=== PATIENT | female | born 1955 | race Caucasian/White ===

== ENCOUNTER 2020-03-26 09:32 | Outpatient (REF) | payer OTHER, SELFPAY ==
[2020-03-26 11:32] LABS: Estimated Average Glucose 114 mg/dL; Hemoglobin A1c % 5.6 %
[2020-03-26 11:44] LABS: Alanine Aminotransferase 43 U/L (0-31); Anion Gap 14 (12-20); Aspartate Amino Transferase 28 U/L (5-31); Blood Urea Nitrogen 14 mg/dL (9-16); Calcium 9.6 mg/dL (8.4-10.2); Carbon Dioxide 30 mmol/L (22-29); Chloride 103 mmol/L (96-108); Cholesterol 258 mg/dL; Estimated Glomerular Filt Rate > 60; Glucose Fasting 107 mg/dL (60-99); HDL Cholesterol 79 mg/dL; LDL Cholesterol Calculated 165 mg/dl; Potassium 4.3 mmol/l (3.3-5.1); Sodium 143 mmol/L (135-145); Triglycerides 72 mg/dL
[2020-03-26 12:07] LABS: Vitamin D 25-OH Total 23.3 ng/mL (>30)
== END 2020-03-26 09:33 | disposition home or self-care (01) ==
LOC: HO.HMGCLDS 09:32
PROVIDERS: PCP Internal Medicine; Visit Provider Internal Medicine
DX: I10 Essential (primary) hypertension (principal); E78.5 Hyperlipidemia, unspecified; E55.9 Vitamin D deficiency, unspecified; J30.89 Other allergic rhinitis; R73.01 Impaired fasting glucose; F41.1 Generalized anxiety disorder; Z78.0 Asymptomatic menopausal state
CPT/HCPCS: 36415; 80048; 80061; 82306; 83036; 84450; 84460

== ENCOUNTER 2020-07-15 11:10 | Outpatient (REF) | payer OTHER, SELFPAY ==
[2020-07-15 14:26] LABS: Alanine Aminotransferase 47 U/L (0-31); Aspartate Amino Transferase 29 U/L (5-31); Cholesterol 326 mg/dL; HDL Cholesterol 83 mg/dL; LDL Cholesterol Calculated 227 mg/dl; Triglycerides 81 mg/dL
[2020-07-15 14:46] LABS: Vitamin D 25-OH Total 68.9 ng/mL (>30)
== END 2020-07-15 11:11 | disposition home or self-care (01) ==
LOC: HO.HMGCLDS 11:10
PROVIDERS: PCP Internal Medicine; Visit Provider Internal Medicine
DX: E55.9 Vitamin D deficiency, unspecified (principal); E78.5 Hyperlipidemia, unspecified; Z78.0 Asymptomatic menopausal state
CPT/HCPCS: 36415; 80061; 82306; 84450; 84460

== ENCOUNTER 2021-01-18 08:23 | Outpatient (REF) | payer OTHER, SELFPAY ==
[2021-01-18 11:58] LABS: Alanine Aminotransferase 42 U/L (0-31); Anion Gap 13 (12-20); Aspartate Amino Transferase 36 U/L (5-31); Blood Urea Nitrogen 12 mg/dL (9-16); Calcium 9.6 mg/dL (8.4-10.2); Carbon Dioxide 28 mmol/L (22-29); Chloride 104 mmol/L (96-108); Cholesterol 321 mg/dL; Estimated Glomerular Filt Rate > 60; Glucose Fasting 109 mg/dL (60-99); HDL Cholesterol 86 mg/dL; LDL Cholesterol Calculated 219 mg/dl; Potassium 4.5 mmol/L (3.3-5.1); Sodium 140 mmol/L (135-145); Triglycerides 84 mg/dL
== END 2021-01-18 08:24 | disposition home or self-care (01) ==
LOC: HO.HMGCLDS 08:23
PROVIDERS: PCP Internal Medicine; Visit Provider Internal Medicine
DX: R74.8 Abnormal levels of other serum enzymes (principal); E78.5 Hyperlipidemia, unspecified; I10 Essential (primary) hypertension; R73.01 Impaired fasting glucose
CPT/HCPCS: 36415; 80048; 80061; 82550; 84450; 84460

== ENCOUNTER 2021-05-13 07:14 | Outpatient (REF) | payer OTHER, SELFPAY ==
[2021-05-13 11:41] LABS: Alanine Aminotransferase 38 U/L (0-31); Anion Gap 11 (12-20); Aspartate Amino Transferase 30 U/L (5-31); Blood Urea Nitrogen 15 mg/dL (9-16); Calcium 9.6 mg/dL (8.4-10.2); Carbon Dioxide 26 mmol/L (22-29); Chloride 106 mmol/L (96-108); Cholesterol 309 mg/dL; Estimated Glomerular Filt Rate > 60; Glucose Fasting 109 mg/dL (60-99); HDL Cholesterol 84 mg/dL; LDL Cholesterol Calculated 199 mg/dl; Potassium 4.4 mmol/L (3.3-5.1); Sodium 139 mmol/L (135-145); Triglycerides 133 mg/dL
== END 2021-05-13 07:15 | disposition home or self-care (01) ==
LOC: HO.HMGCLDS 07:14
PROVIDERS: Visit Provider Internal Medicine
DX: E78.5 Hyperlipidemia, unspecified (principal); I10 Essential (primary) hypertension
CPT/HCPCS: 36415; 80048; 80061; 82550; 84450; 84460

== ENCOUNTER → 2021-05-25 11:30 | Outpatient (BNVA) | payer OTHER, SELFPAY | PROVIDERS: PCP Internal Medicine; Visit Provider Physician Assistant | DX: D12.6 Benign neoplasm of colon, unspecified (principal); K59.09 Other constipation; Z12.11 Encounter for screening for malignant neoplasm of colon; Z79.899 Other long term (current) drug therapy | CPT/HCPCS: 99202; 99212 ==

== ENCOUNTER 2021-05-25 12:24 | Outpatient (REF) | payer OTHER, SELFPAY ==
[2021-05-25 13:33] LABS: MANUAL DIFF FLAG NO
[2021-05-25 13:37] LABS: Basophils Absolute Auto 0.1 X10*3/uL (0.0-0.2); Basophils Percent Auto 0.7 % (0-2); Eosinophils Absolute Auto 0.5 X10*3/uL (0.0-0.4); Eosinophils Percent Auto 6.2 % (0-4); Hemoglobin 12.6 g/dl (12.0-16.0); Imm Gran Abs Auto 0.02 X10*3/uL (0.00-0.03); Imm Gran Pct Auto 0.3 % (0.0-0.4); Lymphocytes Absolute Auto 2.1 X10*3/uL (1.2-4.9); Lymphocytes Percent Auto 27.6 % (20-40); Mean Corpuscular HGB Conc 33.2 g/dl (31.0-35.0); Mean Corpuscular Hemoglobin 32.1 pg (27.0-33.0); Mean Corpuscular Volume 96.9 fL (80.0-98.0); Mean Platelet Volume 10.5 fL (9.4-12.3); Monocytes Absolute Auto 0.4 X10*3/uL (0.1-1.2); Monocytes Percent Auto 4.9 % (2-11); Neutrophils Absolute Auto 4.5 x10*3/uL (2.0-8.3); Neutrophils Percent Auto 60.3 % (45-73); Platelet Count 350 X10*3/uL (160-400); Red Blood Count 3.92 X10*6/uL (4.20-5.50); Red Cell Distribution Width 11.9 % (11.0-16.0); White Blood Count 7.5 X10*3/uL (4.8-10.8)
[2021-05-25 14:09] LABS: Thyroid Stimulating Hormone 1.53 uIU/mL (0.32-4.0)
== END 2021-05-25 12:25 | disposition home or self-care (01) ==
LOC: HO.WFDLDS 12:24
PROVIDERS: Visit Provider Physician Assistant
DX: K59.09 Other constipation (principal); D12.6 Benign neoplasm of colon, unspecified
CPT/HCPCS: 36415; 82378; 84443; 85025

== ENCOUNTER 2021-06-01 12:29 | Day surgery (SDC) | payer OTHER, SELFPAY ==
--- NOTE | 2021-05-31 12:25 | HO.ANESPROP2 ---
Documented by User: Carolina Goff NP 05/31/21 12:27 HPI - Anesthesia Eval Consult details Narrative: 65yo F for Colonoscopy PMFSH Active Problems Active Problems: All Active Problems (Updated 05/25/21 @ 14:44 by Deann Brothers PA-C) Tubular adenoma of colon (Acute) History of vitamin D deficiency (Acute) Essential hypertension (Acute) Tubular adenoma of colon (Acute) Patent foramen ovale with right to left shunt (Acute) Anxiety (Acute) Impaired fasting glucose (Acute) Elevated liver enzymes (Acute) Dyslipidemia (Acute) Other allergic rhinitis (Acute) Past Medical History Medical History Anxiety Dyslipidemia Elevated liver enzymes Essential hypertension History of vitamin D deficiency Impaired fasting glucose Patent foramen ovale with right to left shunt Tubular adenoma of colon Tubular adenoma of colon Vitamin D deficiency Family History Family History Father HTN (hypertension) Hyperlipidemia CAD (coronary artery disease) Alzheimer's disease CVD (cardiovascular disease) Mother Hyperlipidemia Son Bronchial asthma Mental health disorder Paternal Grandmother Alzheimer's disease Paternal Aunt Alzheimer's disease Paternal Uncle No problems noted. Brother No problems noted. Brother No problems noted. Brother No problems noted. Sister No problems noted. Son Bronchial asthma Daughter No problems noted. Surgical History Surgical History (Updated 06/01/21 @ 12:49 by Eboni Iqbal RN) Colloid cyst of brain Hx of colonoscopy Social History Social History Household Members Other:: - 3 children Housing: House Alcohol intake: current Alcohol intake frequency: holidays/special occasions only Patient Tobacco Use Status: Never used Tobacco e-Cigarette/Vaping Use: Never Used Current occupational status: employed and retired Meds Allergies Allergy/AdvReac Type Severity Reaction Status Date / Time atorvastatin AdvReac Unknown myalgia Verified 05/25/21 11:31 Home Medications Medication Instructions Recorded Confirmed Last Taken Type flu vac [id number] 36mos up(PF) 0.5 ml IM DIRECTED 03/27/20 05/25/21 Unknown History varicella-zoster glycoE [id number] 0.5 ml IM DIRECTED 03/27/20 05/25/21 Unknown History adj(PF) 50 mcg/0.5 mL IM susp, [place] rosuvastatin 5 mg tablet 5 mg PO DAILY 02/08/21 05/25/21 Unknown History lisinopril 20 mg tablet 20 mg PO DAILY tab 05/14/21 05/25/21 Unknown History Exam Exam Date and Time: May 31, 2021 1225 Pertinent Lab Results Pertinent Lab Results: Laboratory Tests 05/13/21 05/25/21 07:20 12:30 WBC 7.5 Hgb 12.6 Hct 38.0 Plt Count 350 Sodium 139 Potassium 4.4 Chloride 106 Carbon Dioxide 26 BUN 15 Creatinine 0.90 Assessment and Plan Assessment Anesthesia Assessment: Chart Reviewed Documented by User: Malik Knight MD 06/01/21 15:46 PMFSH Past Medical History Medical History Anxiety Dyslipidemia Elevated liver enzymes Essential hypertension History of vitamin D deficiency Impaired fasting glucose Patent foramen ovale with right to left shunt Tubular adenoma of colon Tubular adenoma of colon Vitamin D deficiency Family History Family History Father HTN (hypertension) Hyperlipidemia CAD (coronary artery disease) Alzheimer's disease CVD (cardiovascular disease) Mother Hyperlipidemia Son Bronchial asthma Mental health disorder Paternal Grandmother Alzheimer's disease Paternal Aunt Alzheimer's disease Paternal Uncle No problems noted. Brother No problems noted. Brother No problems noted. Brother No problems noted. Sister No problems noted. Son Bronchial asthma Daughter No problems noted. Family history of problems with anesthesia: No Surgical History Surgical History (Updated 06/01/21 @ 12:49 by Eboni Iqbal, [place]) Colloid cyst of brain Hx of colonoscopy History of Problems with Anesthesia: No Social History Social History Household Members Other:: - 3 children Housing: House Alcohol intake: current Alcohol intake frequency: holidays/special occasions only Patient Tobacco Use Status: Never used Tobacco e-Cigarette/Vaping Use: Never Used Current occupational status: employed and retired Meds Allergies Allergy/AdvReac Type Severity Reaction Status Date / Time atorvastatin AdvReac Unknown myalgia Verified 05/25/21 11:31 Home Medications Medication Instructions Recorded Confirmed Last Taken Type flu vac [id number] 36mos up(PF) 0.5 ml IM DIRECTED 03/27/20 05/25/21 Unknown History varicella-zoster glycoE [id number] 0.5 ml IM DIRECTED 03/27/20 05/25/21 Unknown History adj(PF) 50 mcg/0.5 mL IM susp, kit rosuvastatin 5 mg tablet 5 mg PO DAILY 02/08/21 05/25/21 Unknown History lisinopril 20 mg tablet 20 mg PO DAILY tab 05/14/21 05/25/21 Unknown History Exam Airway Mallampati Class: III TM Dist: >3cm Neck ROM: Full Loose/Missing/Broken Teeth: Yes (Chipped , poor dentation ) Heart: rrr Lungs: bl breath sounds Assessment and Plan Assessment Anesthesia Assessment: Anesthesia Plan Discussed Final Anesthetic Review Family History of Problems with Anesthesia: No History of Problems with Anesthesia: No NPO: Yes ASA Class: II Final Preanesthetic Review: Meds/Allgs Chart Reviewed, Consent Obtained/Reviewed and Anes Risks/Benef Reviewed Patient Risk: Intermediate Procedure Risk: Intermediate Anesthetic Plan Anesthetic Plan: MAC: Disposition: Standard PACU
[2021-06-01 12:30] VITALS: BMI 33.6
[2021-06-01 12:59] VITALS: BP 151/83; PULSE 86; RESP 16; TEMP 36.8; O2SAT 99
[2021-06-01] MEDS: Lactated Ringers 1,000 ML 100 ML IVCONT (13:08)
--- NOTE | 2021-06-01 14:23 | MHC.SHP ---
Pre-Procedural Eval Section A Date of Service: 06/01/21 Section B Chief Complaint: Benign neoplasm of colon, Relevant Family History (Specify if Yes): No Relevant Social History: None Present Medications: see Short Stay Collaborative assessment Medical History: Significant History (Anxiety Dyslipidemia Elevated liver enzymes Essential hypertension History of vitamin D deficiency Impaired fasting glucose Patent foramen ovale with right to left shunt Tubular adenoma of colon Tubular adenoma of colon Vitamin D deficiency) History of Previous Operations: Relevant previous surgery/procedure and date(s) (Colloid cyst of brain Hx of colonoscopy) Allergies: Allergies Allergy/AdvReac Type Severity Reaction Status Date / Time atorvastatin AdvReac Unknown myalgia Verified 05/25/21 11:31 Review of Systems Sugical H&P ROS: Negative: Constitution, Cardiovascular, Respiratory, Neurological, Psychiatric, Hem-Onc, Allergic/Immunologic, Gastrointestinal, Genitourinary, Musculoskeletal, Integumentary, Endocrine and Eyes/Ears/Nose/Throat Exam Surgical H&P Exam: Normal: HEENT, Normal: Heart, Normal: Lungs, Normal: Extremities, Normal: Abdomen, Normal: Skin and Normal: Neurological Plan Diagnosis/Plan: Unchanged I have reviewed the history and physical and performed a pertinent physical examination on my patient. No changes have occurred unless specified.
--- NOTE | 2021-06-01 14:27 | P.BOP_ITS ---
Brief Operative Note Date of Service: 06/01/21 Pre-op diagnosis: colon screening Post-op diagnosis: same Procedure: see op note Surgeon: David Aparicio MD Anesthesia: MAC Was an Mortgage Analyst used for this Procedure?: No Estimated blood loss (mL): 0 Condition: stable Disposition: PACU
--- NOTE | 2021-06-01 14:28 | W.PM.OPN ---
Operative Note Operative Note Date of Service: 06/01/21 Narrative: Operative Information Procedure Description: Colonoscopy COLONOSCOPY Instrument: Olympus variable stiffness adult scope 190L Colonoscopy Monitoring: Vital signs and clinical assessment, continuous EKG monitoring, Pulse oximetry, Carbon Dioxide monitoring and blood pressure monitoring were done throughout the procedure. Colon withdrawal time was 11 minutes. Procedure: The patient was placed in the left lateral decubitis position and pre-procedure medications were administered. After a digital rectal examination of the ano-rectum, the video colonoscope was inserted into the rectum and advanced through the colon to the cecum/TI. The colonoscope was slowly withdrawn in a retrograde panoramic fashion and the colon mucosa was carefully examined including a retroflexed view of the rectum. Findings and interventions are described below. Procedure Difficulty: moderate due to extrinsic compression of sigmoid, and tight colon with redundancy Findings: Terminal Ileum-not inutbated Cecum:normal Ascending Colon: normal Transverse Colon -normal Descending Colon:normal Sigmoid Colon: 10-12 mm sessile polyp removed with cold snare Rectum: Retroflexion with small internal hemorrhoids, grade I Anorectum - normal Colon preparation: [place] Bowel Preparation Scale Right colon; 2 Transverse colon: 3 Left colon; 2 (0 = Unprepared colon segment with mucosa not seen due to solid stool that cannot be cleared. 1 = Portion of mucosa of the colon segment seen, but other areas of the colon segment not well seen due to staining, residual stool and/or opaque liquid. 2 = Minor amount of residual staining, small fragments of stool and/or opaque liquid, but mucosa of colon segment seen well. 3 = Entire mucosa of colon segment seen well with no residual staining, small fragments of stool or opaque liquid) Impression and Post Procedure Diagnosis: polyp internal hemorrhoids Plan: High fiber diet leaflet Avoid straining at stool, epsom salts and sitz bath, anusol supps or cream Repeat Colonoscopy in 5 years or earlier if clinically indicated Ct scan of A/P to see if there is indeed extrinsic compression of colon Above findings were reviewed with the patient and relevant handouts were provided if indicated.
[2021-06-01 15:00] VITALS: BP 101/60; PULSE 65; RESP 16; TEMP 36.5; O2SAT 97
[2021-06-01 15:21] VITALS: BP 130/81; PULSE 72; RESP 20; TEMP 36.3; O2SAT 98
== END 2021-06-01 15:39 | disposition home or self-care (01) ==
PROVIDERS: PCP Internal Medicine; Visit Provider Internal Medicine Gastroenterology
PROC: 0DJD8ZZ Inspection of Lower Intestinal Tract, Via Natural or Artificial Opening Endoscopic (ICD-10-PCS; CPT 45378; principal; 2021-06-01 14:50)
DX: Z12.11 Encounter for screening for malignant neoplasm of colon (principal); Z86.010 Personal history of colon polyps; D12.5 Benign neoplasm of sigmoid colon; K64.0 First degree hemorrhoids; K21.9 Gastro-esophageal reflux disease without esophagitis; R19.7 Diarrhea, unspecified; I10 Essential (primary) hypertension; E78.5 Hyperlipidemia, unspecified; E55.9 Vitamin D deficiency, unspecified; R73.01 Impaired fasting glucose; F41.1 Generalized anxiety disorder; Z79.899 Other long term (current) drug therapy; Z88.8 Allergy status to other drugs, medicaments and biological substances
CPT/HCPCS: 45385; 88305

== ENCOUNTER → 2021-06-15 12:28 | Outpatient (BNVA) | payer OTHER, SELFPAY | PROVIDERS: PCP Internal Medicine; Visit Provider Physician Assistant | DX: Z13.89 Encounter for screening for other disorder (principal) ==

== ENCOUNTER 2021-07-05 09:16 | Outpatient (REF) | payer OTHER, SELFPAY ==
[2021-07-05 12:03] LABS: Blood Urea Nitrogen 11 mg/dL (9-16); Estimated Glomerular Filt Rate > 60
== END 2021-07-05 09:17 | disposition home or self-care (01) ==
LOC: HO.HMGCLDS 09:16
PROVIDERS: Visit Provider Internal Medicine Gastroenterology
DX: R93.3 Abnormal findings on diagnostic imaging of other parts of digestive tract (principal)
CPT/HCPCS: 36415; 82565; 84520

== ENCOUNTER 2021-07-07 08:01 | Outpatient (REF) | payer OTHER, SELFPAY ==
--- NOTE | ~2021-07-07 | CT_ITS ---
EXAMINATION: CT ABDOMEN AND PELVIS WITH CONTRAST CLINICAL INFORMATION: Unspecified intestinal obstruction. COMPARISON: None TECHNIQUE: Multidetector volumetric images were obtained from the superior aspect of the liver through the pubic symphysis following administration 85 mL of Omnipaque 350 intravenous contrast. Sagittal and coronal reformatted images were obtained on the technologist's workstation. Oral contrast: No. This CT examination was performed using dose optimization techniques as appropriate, variously including the following: *Automated exposure control *Adjustment of mA and/or kV according to patient size (this includes techniques or standardized protocols for targeted exams where dose is matched to indication/reason for exam; i.e. extremities or head) *Use of iterative reconstruction technique DLP: 625 mGy-cm FINDINGS: LUNG BASES: The visualized lung bases are unremarkable. LIVER, GALLBLADDER, AND BILIARY TREE: The liver is homogeneous in density, normal size, shape and contour. No focal lesion or intrahepatic ductal dilatation seen. The gallbladder is unremarkable with no evidence of radiopaque gallstones, gallbladder wall thickening, or obvious pericholecystic inflammatory changes. PANCREAS: Unremarkable. SPLEEN: The spleen is unremarkable with a small accessory splenule seen adjacent to it. ADRENAL GLANDS: Unremarkable. KIDNEYS AND URETERS: The kidneys are normal in size, shape, and attenuation. No hydronephrosis, hydroureter, or calculi seen. No perinephric stranding. BLADDER: Unremarkable. GASTROINTESTINAL TRACT: There is scattered stool and oral contrast seen throughout the colon without any distention. A few scattered diverticula seen but no evidence of mural thickening or pericolic fat stranding. The small bowel loops in the left upper pelvis have mild mural thickening. The appendix is not visualized with certainty. The cecum lies almost to the midline. No free air or free fluid seen. ABDOMINAL WALL: No significant hernia is appreciated. LYMPH NODES: Normal. VASCULAR: Unremarkable. PELVIC VISCERA: There is no free fluid or free air. The uterus is retroverted and appears unremarkable. OSSEOUS STRUCTURES: No lytic or sclerotic process seen. There are mild degenerative disc changes with vacuum disc phenomena at the L3-L4 and L5-S1 disc levels. No lytic or sclerotic process seen. CT/CT abdomen pelvis w con IMPRESSION: Mild constipation. No acute process seen. Nonspecific mild mural thickening small bowel segment left upper pelvis of nonspecific etiology. Consider small bowel follow-through after cleansing enema. No free air or free fluid seen. No abnormal pelvic or retroperitoneal lymph nodes. Fleischner guidelines were followed.
[2021-07-07] MEDS: iohexoL 350 MG/ML 100 ML INFUS..BTL IV (10:41)
[2021-07-07] MEDS: Barium Sulfate Oral (Berry) 450 ML ORAL.SUSP 900 ML PO (10:42)
== END 2021-07-07 08:02 | disposition home or self-care (01) ==
LOC: HO.CT 08:01
PROVIDERS: PCP Internal Medicine; Visit Provider Internal Medicine Gastroenterology
DX: K56.609 Unspecified intestinal obstruction, unspecified as to partial versus complete obstruction (principal)
CPT/HCPCS: 74177; Q9967

== ENCOUNTER 2021-09-17 08:39 | Outpatient (REF) | payer OTHER, SELFPAY ==
--- NOTE | ~2021-09-17 | FL_ITS ---
EXAMINATION: FL SMALL BOWEL SERIES CLINICAL INFORMATION: Follow-up bowel wall thickening of the proximal small bowel on CT COMPARISON: Previous CT of the abdomen and pelvis June 2021 TECHNIQUE: Following a supervisor cigarette making department image of the abdomen, contrast was administered orally, and interval abdominal radiographs were performed to assess for contrast progression through the small bowel. Following contrast transit through the small bowel and into the colon, the patient was placed on the fluoroscopy table, and multiple spot images were obtained. FINDINGS: Cna Pct image of the abdomen demonstrates a normal bowel gas pattern. There is normal transit time of contrast material through the small bowel, with contrast present in the colon by 2 hour 30 minutes. Small bowel loops are of normal caliber throughout the abdomen and pelvis. The jejunal and ileal fold patterns are normal, without evidence of abnormal thickening. No fixed regions of luminal narrowing are seen to suggest stricturing. The terminal ileum demonstrates a normal appearance. FLUOROSCOPY TIME: 0.2 minutes DOSE AREA PRODUCT: 4 bullock per centimeter squared. 2 saved fluoroscopic images and 14 overhead images FL/FL small bowel follow through IMPRESSION: Normal small bowel series.
== END 2021-09-17 08:40 | disposition home or self-care (01) ==
LOC: HO.XRAY 08:39
PROVIDERS: Visit Provider Internal Medicine Gastroenterology
DX: R93.3 Abnormal findings on diagnostic imaging of other parts of digestive tract (principal)
CPT/HCPCS: 74250

== ENCOUNTER 2021-11-23 09:18 | Outpatient (REF) | payer MEDICARE, SELFPAY ==
[2021-11-23 11:54] LABS: Alanine Aminotransferase 37 U/L (0-31); Anion Gap 15 (12-20); Aspartate Amino Transferase 32 U/L (5-31); Blood Urea Nitrogen 10 mg/dL (9-16); Calcium 9.9 mg/dL (8.4-10.2); Carbon Dioxide 27 mmol/L (22-29); Chloride 103 mmol/L (96-108); Cholesterol 321 mg/dL; Estimated Glomerular Filt Rate > 60; Glucose Fasting 112 mg/dL (60-99); HDL Cholesterol 62 mg/dL; LDL Cholesterol Calculated 240 mg/dl; Potassium 4.4 mmol/L (3.3-5.1); Sodium 141 mmol/L (135-145); Triglycerides 98 mg/dL
[2021-11-23 12:16] LABS: Vitamin D 25-OH Total 38.3 ng/mL (>30)
== END 2021-11-23 09:19 | disposition home or self-care (01) ==
LOC: HO.HMGCLDS 09:18
PROVIDERS: PCP Internal Medicine; Visit Provider Internal Medicine
DX: E78.5 Hyperlipidemia, unspecified (principal); R74.8 Abnormal levels of other serum enzymes; E55.9 Vitamin D deficiency, unspecified
CPT/HCPCS: 36415; 80048; 80061; 82306; 84450; 84460

== ENCOUNTER 2022-08-18 09:06 | Outpatient (REF) | payer MEDICARE, SELFPAY ==
[2022-08-18 12:07] LABS: Alanine Aminotransferase 31 U/L (0-31); Aspartate Amino Transferase 24 U/L (5-31); Cholesterol 314 mg/dL; Glucose Fasting 115 mg/dL (60-99); HDL Cholesterol 72 mg/dL; LDL Cholesterol Calculated 219 mg/dl; Triglycerides 117 mg/dL
[2022-08-18 12:23] LABS: Estimated Average Glucose 105 mg/dL; Hemoglobin A1c % 5.3 %
== END 2022-08-18 09:07 | disposition home or self-care (01) ==
LOC: HO.HMGCLDS 09:06
PROVIDERS: PCP Internal Medicine; Visit Provider Internal Medicine
DX: I10 Essential (primary) hypertension (principal); R73.01 Impaired fasting glucose; E78.5 Hyperlipidemia, unspecified
CPT/HCPCS: 36415; 80061; 82550; 82947; 83036; 84450; 84460

== ENCOUNTER 2022-09-29 08:18 | Outpatient (REF) | payer MEDICARE, SELFPAY ==
--- NOTE | ~2022-09-29 | MM_ITS ---
EXAMINATION: MM SCREENING DIGITAL BREAST TOMOSYNTHESIS, BILATERAL CLINICAL INFORMATION: Screening. Asymptomatic. The lifetime risk of breast cancer based on the Tyrer-Cuzick Model is 9.9%. COMPARISON: Mammography: No prior mammograms are available for comparison. This study will then function as a new baseline mammogram for this patient. TECHNIQUE: Digital breast tomosynthesis is performed in both the craniocaudal and mediolateral oblique views along with computer-aided detection (CAD). Synthesized 2D images are generated from the tomosynthesis. FINDINGS: There are scattered areas of fibroglandular density (ACR BI-RADS breast composition Category b). There are no significant masses, abnormal calcifications, or other abnormalities. MM/MM tomosynthesis screening BI IMPRESSION: No mammographic evidence of malignancy. ASSESSMENT: BI-RADS BI-RADS 1 - Negative RECOMMENDATION: Routine annual mammography screening. 1 year F/U This examination should not preclude the clinical evaluation of a suspicious palpable abnormality. This patient's information was entered into a reminder system with a target due date for their next mammogram.
--- NOTE | ~2022-09-29 | MM_ITS ---
EXAMINATION: BONE DENSITOMETRY CLINICAL INDICATION: Encounter for screening for osteoporosis. Menopause. COMPARISON: This is the patient's baseline examination. TECHNIQUE: Using a [employer] DXA System (software version: 13.1) manufactured by [employer], dual-energy x-ray absorptiometry was performed of the lumbar spine and left hip. The images are of good technical quality. Summary results are attached. FINDINGS: AP SPINE L1-L4: BMD 1.439 g/cm2, Z-score 2.9, T-score 2.2, normal. LEFT FEMUR, NECK: BMD 0.889 g/cm2, Z-score -0.1, T-score -1.1, osteopenia. LEFT FEMUR, TOTAL: BMD 1.080 g/cm2, Z-score 1.2, T-score 0.6, normal. IDENTIFIED RISK FACTORS: Alcohol (3 or more units per day). Menopause. HISTORY OF FRACTURE: None listed. MEDICATIONS: None listed. MM/XR DEXA axial skeleton IMPRESSION: 1. DIAGNOSIS: Osteopenia based on the lowest T-score value of -1.1 in the femoral neck applying World Health Organization criteria. 2. 10-YEAR FRACTURE RISK PREDICTION, FRAX: Major osteoporotic fracture (clinical spine, forearm, hip or shoulder) 9.5%. Hip fracture 0.9%. 3. Treatment Recommendations: NOF guidelines recommend consideration for treatment in postmenopausal women and men age 50 and older presenting with the following: -A hip or vertebral (clinical or morphometric) fracture. -T-score less than or equal to -2.5 at the femoral neck or spine after appropriate evaluation to exclude secondary causes. -Low bone mass at the hip or spine and a 10-year fracture probability by FRAX of greater than or equal to 3% for hip fracture or greater than or equal to 20% for major osteoporotic fracture based on the [place] adapted WHO algorithm. 4. Other Recommendations: All treatment decisions require clinical judgment and consideration of individual patient factors, including patient preferences, comorbidities, previous drug use, risk factors not captured in the FRAX model (e.g. frailty, falls, vitamin D deficiency, increased bone turnover, interval significant decline in bone density) and possible under or overestimation of fracture risk by FRAX. Additional medical evaluation for secondary cause of low bone mineral density may be appropriate. FUTURE SCAN RECOMMENDATION: People with diagnosed cases of osteoporosis or at high risk for fracture should have regular bone mineral density tests. For patients eligible for Medicare, routine testing is allowed once every 2 years. The testing frequency can be increased to one year for patients who have rapidly progressing disease, those who are receiving or discontinuing medical therapy to restore bone mass, or have additional risk factors.
== END 2022-09-29 08:19 | disposition home or self-care (01) ==
LOC: HO.MAMMO 08:18
PROVIDERS: PCP Internal Medicine; Visit Provider Internal Medicine
DX: Z12.31 Encounter for screening mammogram for malignant neoplasm of breast (principal); Z13.820 Encounter for screening for osteoporosis; Z78.0 Asymptomatic menopausal state
CPT/HCPCS: 77063; 77067; 77080

== ENCOUNTER → 2022-09-29 08:30 | Outpatient (BNV) | payer MEDICARE, SELFPAY | PROVIDERS: PCP Internal Medicine; Visit Provider Radiology Diagnostic Radiology | DX: Z12.31 Encounter for screening mammogram for malignant neoplasm of breast (principal) | CPT/HCPCS: 77063; 77067 ==

== ENCOUNTER 2022-10-07 10:48 | Outpatient (AMB) | payer MEDICARE, SELFPAY ==
[2022-10-07 11:17] VITALS: BP 128/80; PULSE 75; O2SAT 98; BMI 32.7
--- NOTE | 2022-10-07 11:17 | MHC.PC.OV ---
Vital Signs 10/07/22 11:17 Height 5 ft 7 in Weight 209 lb BMI 32.7 BP 128/80 Blood Pressure Location Lt brachial Position Sitting Pulse 75 Pulse Source Pulse Oximeter Pulse Oximetry (%) 98 Oxygen Delivery Method Room Air Intake Visit Reasons: 6 week follow up Intake Note: Pt is here today for her 6 wks f/u also [facility] ER for anxiety yesterday Allergies atorvastatin Adverse Reaction (Unknown, Verified 10/07/22 11:23) myalgia Medication List - Last Reconciled 10/07/22 by Flakita Beebe MD albuterol sulfate 90 mcg/actuation (ProAir HFA) 1 inh inhalation Q4H PRN buspirone 5 mg PO TID cetirizine 10 mg PO BEDTIME fexofenadine (Allergy Relief (fexofenadine)) 60 mg PO Q12H fluticasone propionate 50 mcg/actuation 1 spray intranasal QAM 90 days lisinopril 20 mg PO DAILY lorazepam 0.5 mg PO DAILY PRN magnesium oxide 250 mg PO DAILY pravastatin 20 mg PO BEDTIME Tobacco use date assessed: 10/07/22 Fall risk assessment: No Falls in past year Last assessed Fall Risk: 10/07/22 Dental Screening Dental Screen Date: 10/07/22 Did you have a dental visit in the last 12 months?: No Was dental information given to patient?: Patient declined HPI 6 week follow up HPI Details 66 year-old lady here today for follow-up. She has been diagnosed to have generalized anxiety disorder, and was started on buspirone 5 mg taken 1 tablet twice a day which she states has been helping but getting recurrent episodes of anxiety specially worse at night. Afraid that she might have another attack while on a trip to [place] next week. [facility] Medical History Abnormal colonoscopy Dyslipidemia Essential hypertension Generalized anxiety disorder History of vitamin D deficiency Impaired fasting glucose Left shoulder pain Patent foramen ovale with right to left shunt Tubular adenoma of colon Vitamin D deficiency Surgical History Colloid cyst of brain Hx of colonoscopy Family History Father HTN (hypertension) Hyperlipidemia CAD (coronary artery disease) Alzheimer's disease CVD (cardiovascular disease) Mother Hyperlipidemia Son Bronchial asthma Mental health disorder Paternal Grandmother Alzheimer's disease Paternal Aunt Alzheimer's disease Paternal Uncle No problems noted. Brother No problems noted. Brother No problems noted. Brother No problems noted. Sister No problems noted. Son Bronchial asthma Daughter No problems noted. Social History Household Members Other:: - 3 children Housing: House Alcohol intake: current Alcohol intake frequency: holidays/special occasions only Patient Tobacco Use Status: Never used Tobacco e-Cigarette/Vaping Use: Never Used service: No Current occupational status: retired Cognitive needs: No Hearing needs: No Vision needs: Yes Questionnaire Thrive Questionnaire Date Thrive assessed: 05/14/21 MER-7 AMB Questionnaire MER-7 Date MER - 7 assessed: 10/07/22 Feeling nervous, anxious, or on edge: 1 = Several days Not being able to stop or control worryin = Several days Worrying too much about different things: 1 = Several days Trouble relaxin = Not at all Being so restless that it is hard to sit still: 0 = Not at all Becoming easily annoyed or irritable: 0 = Not at all Feeling afraid as if something awful might happen: 1 = Several days Total MER-7 score (0-4 normal; 5-9 mild; 10-14 moderate; 15-21 severe): 4 Source: Developed by Drs. Brett Jarrett, Dariana Lowe, Torin Ma and colleagues, with an educational marcela from [employer]. Review of Systems Const Denies fever(s) and Denies headache(s) ENT Denies dizziness, Denies headache(s) and Denies nasal discharge Card Denies chest pain, Denies lightheadedness and Denies dyspnea Resp Denies chest congestion, Denies cough and Denies dyspnea GI Denies abdominal pain, Denies change in bowel habits and Denies heartburn Neuro Denies dizziness and Denies headache(s) Psych Reports as per HPI Physical exam (Primary Care) Vital Signs: Last Vital Signs Pulse 75 10/07/22 11:17 BP 128/80 10/07/22 11:17 Pulse Ox 98 10/07/22 11:17 Oxygen Delivery Method Room Air 10/07/22 11:17 BMI result Body Mass Index 32.7 Tobacco/Smoking Status: Tobacco use Status Tobacco use date assessed 10/07/22 10/07/22 11:20 Patient Tobacco Use Status Never used Tobacco 10/07/22 11:20 e-Cigarette/Vaping Use Never Used 10/07/22 11:20 Thrive Assessment: Date of Thrive Assessment Date Thrive assessed 05/14/21 10/07/22 11:20 Const Other: Alert oriented x3, no acute distress noted , normal gait Orientation/consciousness: patient oriented x3 Neck Neck: Yes full ROM, Yes no lymphadenopathy and Yes supple Thyroid: Thyroid normal Resp Effort & Inspection: normal respiratory effort and able to speak in complete sentences Auscultation: clear to auscultation bilaterally Cardio Rate: regular rate Rhythm: regular rhythm Heart sounds: S1 normal heart sound present and S2 normal heart sound present GI Palpation (GI): Soft to palpation, nontender, no guarding and no masses Auscultation: normal bowel sounds Skin General skin exam: no rashes or lesions noted Neuro General: patient oriented x3, gait normal, tone normal, Normal light touch and pain sensation, no focal motor deficits and CN's II-XI intact bilaterally Extrem General: Yes full ROM, Yes no joint enlargement, Yes no pedal edema, Yes no calf tenderness and Yes normal gait Psych Appearance: grossly normal and well kempt Mental Status: mental status grossly normal Speech and movement: Normal speech and movement present Affect: normal affect Attitude: cooperative Thought process: Normal thought process present Assessment and Plan Assessment & Plan (1) Generalized anxiety disorder: Code(s): F41.1 - Generalized anxiety disorder Plan: Increased buspirone dose to 10 mg to take 1 tablet twice a day. And refill sent for lorazepam 1 mg per tablet to take 1/2-1 tablet only as needed for acute anxiety attacks. Cautioned patient that latter medication is habit-forming and to take it only as needed. See me back for follow-up in 2 months Medications: Changed From buspirone 5 mg PO TID 90 tabs 1RF F41.1 - Generalized anxiety disorder To buspirone 5 mg (1/2 x 10 mg) PO BID 60 tabs 1RF F41.1 - Generalized anxiety disorder From lorazepam 0.5 mg PO DAILY PRN 20 tabs 0RF anxiety To lorazepam 1 mg PO DAILY PRN 30 tabs 0RF anxiety Coding Level of Care Code Est Pt Level 3 (57701) Diagnoses Generalized anxiety disorder F41.1
== END 2022-10-07 12:53 | disposition home or self-care (01) ==
PROVIDERS: PCP Internal Medicine; Visit Provider Internal Medicine
DX: F41.1 Generalized anxiety disorder (principal)
CPT/HCPCS: 99213

== ENCOUNTER 2022-10-10 09:00 | Outpatient (RCR) | payer MEDICARE, SELFPAY ==
--- NOTE | 2022-09-26 13:51 | MHC.PT.EP ---
[facility] [place] Office [place] Office [place] Office [address] Pastor [place] [address] [phone] F: [phone] F: [phone] F: [phone] F: [phone] Physical Therapy Plan of Care Date of Evaluation: Date of Surgery: n/a Diagnosis: pain in L shoulder Assessment: Patient is a 66 year old female presenting to PT with complaints of pain in her L shoulder. Pt reports onset of pain began about 2 years ago due to insidious onset. She presents today with impairments in pain, posture, tenderness to palpation. Pt's current occupation is retired, with baseline physical activities including reaching, sleeping, lifting, carrying. 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 Clinical presentation today is most consistent with signs and sx associated with L shoulder pain and pt will benefit from skilled PT 2 week x 4 weeks to address the following problems and impairments noted upon evaluation: pain, posture, tenderness to palpation. These problems limit the patient with the following functional activities: reaching, sleeping, lifting, carrying. The prescribed treatment plan of care is medically necessary. Co-morbidities of Patent foramen ovale with right to left shunt, HTN were identified and taken into considerations of plan of care. Pt was educated on HEP, role of PT, prognosis, POC. Frequency and Duration: The patient will be seen 2 x week x 4 weeks Short Term Goals: Pt will demonstrate improved isolation of her muscles with RC strength testing in 2 weeks. Pt will demonstrate reports of less incidence of pins and needles in 2 weeks. Pt will demonstrate improved postural awareness by sitting with biomechanically correct posture without cues throughout session to improve overall postural function in 2 weeks. Chcf Goals: Pt will demonstrate improved SPADI score by 13 points in 4 weeks for improved functional mobility. Pt will demonstrate improved ability to lift and carry with min to no pain or sx in 4 weeks for improved ability to carry laundry basket and groceries. Treatment Plan: Modalities to reduce pain, spasms and effusion. Manual therapy to restore motion and function. Therapeutic exercise to improve strength and flexibility. Neuromuscular re-education for posture and balance. Therapeutic activities to return to functional activities of daily living. Electronically signed by: Nelda Oh, PT, DPT, ATC Please sign and return to therapist. Thank you for your referral.
--- NOTE | 2022-10-10 09:50 | MHC.PT.DC ---
[facility] [place] Office [place] Office [place] Office [address] Pastor [place] [address] [phone] F: [phone] F: [phone] F: [phone] F: [phone] Physical Therapy Discharge Report Diagnosis: pain in L shoulder Date of Surgery: n/a Date of Evaluation: 09/26/22 Date of Discharge: 10/10/22 Treatments to Date: 4 Cancellations to Date: 1 No Shows to Date: 0 Discharge Status: Patient Elected to Stop Discharge Summary: 10/10/2022: Pt to be d/c to HEP at this time as she is going to be away traveling for 6 weeks. She has a good HEP and should continue this while she is away. Discussed that if pain continues after continue with HEP for a few months recommend following up with MD to discuss possible further imaging. She is understanding of this. Pt to be d/c at this time and is in agreement with plan. Electronically signed by: Nelda Oh, PT, DPT, ATC Please sign and return to therapist. Thank you for your referral.
== END 2022-10-10 09:51 | disposition home or self-care (01) ==
LOC: HO.PTCHIC 09:00
PROVIDERS: PCP Internal Medicine; Visit Provider Internal Medicine
DX: M25.512 Pain in left shoulder (principal)
CPT/HCPCS: 97110; 97140; 97161

== ENCOUNTER 2023-03-25 09:37 | Outpatient (AMB) | payer MEDICARE, SELFPAY ==
--- NOTE | 2023-03-25 12:35 | AM.OFFWIN_ITS ---
Intake Vital Signs 03/25/23 12:42 Weight 214 lb BP 112/72 Blood Pressure Location Rt brachial Position Sitting Pulse 86 Pulse Source Pulse Oximeter Temp 99.8 F Temp Source Oral Pulse Oximetry (%) 95 Oxygen Delivery Method Room Air Intake Visit Reasons: EP fever hacking cough asthma [phone] Intake Note: Patient here for fever, cough and chest pain that has been present for about 1 week. Patient Tobacco Use Status: Never used Tobacco Allergies atorvastatin Adverse Reaction (Unknown, Verified 03/25/23 12:36) myalgia Do you need a note to return to daycare/school/sports/work: No HPI EP fever hacking cough asthma [phone] HPI Details Patient is a 67-year-old female comes to the walk-in clinic complaining of cough and chest pain that started about a week ago, and she feels like her asthma is getting aggravated. Some relief with albuterol temporarily. The cough can be uncontrolled, and is usually dry and causes transient chest discomfort diffusely with cough. Initial fever has resolved. Rapid covid test negative. No current chest pain, shortness of breath, boody sputum produced, nausea or vomiting or diarrhea, weakness, dizziness, headache, chills, myalgias or malaise, sore throat, ear pain, or other significant symptoms. [facility] Medical History Left shoulder pain Generalized anxiety disorder Abnormal colonoscopy Tubular adenoma of colon Essential hypertension History of vitamin D deficiency Patent foramen ovale with right to left shunt Impaired fasting glucose Vitamin D deficiency Dyslipidemia Surgical History Hx of colonoscopy Colloid cyst of brain Family History Father HTN (hypertension) Hyperlipidemia CAD (coronary artery disease) Alzheimer's disease CVD (cardiovascular disease) Mother Hyperlipidemia Son Bronchial asthma Mental health disorder Paternal Grandmother Alzheimer's disease Paternal Aunt Alzheimer's disease Paternal Uncle No problems noted. Brother No problems noted. Brother No problems noted. Brother No problems noted. Sister No problems noted. Son Bronchial asthma Daughter No problems noted. Social History Household Members Other:: - 3 children Housing: House Alcohol intake: current Alcohol intake frequency: holidays/special occasions only Patient Tobacco Use Status: Never used Tobacco e-Cigarette/Vaping Use: Never Used service: No Current occupational status: retired Cognitive needs: No Hearing needs: No Vision needs: Yes Review of Systems Const All systems reviewed & are unremarkable except as noted in HPI and below Physical Exam Vital Signs: Last Vital Signs Temp 99.8 F 03/25/23 12:42 Pulse 86 03/25/23 12:42 BP 112/72 03/25/23 12:42 Pulse Ox 95 03/25/23 12:42 Oxygen Delivery Method Room Air 03/25/23 12:42 Const General: cooperative, healthy appearing, no acute distress, alert, awake, Physically active and well groomed; No anxious, diaphoretic, intoxicated appearing, poor hygiene or tired appearing Nutritional Appearance: average body habitus Orientation/consciousness: oriented to person Limitations: no limitations Eyes General: appearance normal, both eyes and all related structures Neck Neck: Yes normal visual inspection, Yes full ROM, Yes no lymphadenopathy, Yes trachea midline, Yes supple and No anterior neck swelling Resp Effort & Inspection: normal respiratory effort, able to speak in complete sentences, no audible wheezes, Actively coughing (occ mostly dry), no grunting, not labored, no nasal flaring, no retractions and symmetric chest movement Auscultation: clear to auscultation bilaterally, no crackles, no rales, no rhonchi, no wheezes, lung sounds not diminished and No rub present Cardio Palpation: normal PMI Rate: regular rate Rhythm: regular rhythm Heart sounds: S1 normal heart sound present and S2 normal heart sound present Skin Other: Good color, warm and dry Neuro General: oriented to person Psych Appearance: grossly normal Mental Status: mental status grossly normal Speech and movement: Normal speech and movement present Affect: normal affect Attitude: cooperative Thought process: Normal thought process present Insight: Good insight present (Psych) Judgement: Good judgement present (Psych) Assessment & Plan Assessment & Plan (1) Viral syndrome: Code(s): B34.9 - Viral infection, unspecified Plan: Patient is a 67-year-old female with apparent viral syndrome who states that her underlying asthma is being exacerbated mildly, as she needs her albuterol. She denies current shortness of breath or chest pain. chest xray today with left base atelectasis noted on read. Possible she has viral bronchitis but no significant sputum so exac asthma more likely. Will treat with course of steroids, augmentin, and she can continue the albuterol as needed. She knows to follow up if symptoms persist or worsen, and to go to the emergency department with worrisome symptoms. (2) Asthma: Code(s): J45.909 - Unspecified asthma, uncomplicated Qualifiers: Asthma complication type: unspecified Asthma persistence: unspecified Asthma severity: unspecified severity Qualified Code(s): J45.909 - Unspecified asthma, uncomplicated Plan: See above plan Orders: Orders 2 SARS-CoV2/FLU/RSV 03/25/23 R09.89 - Other specified symptoms and signs involving the circulatory and respiratory systems XR chest 2V 03/25/23 R05.9 - Cough, unspecified Medications: New amoxicillin-pot clavulanate 875-125 mg 1 tab PO BID 14 tabs 0RF 7 days prednisone then take 3 tabs for 3 days, then 2 tabs for 3 days, then 1 tab for 3 days. 40 mg (4 x 10 mg) PO DAILY 30 tabs 0RF 3 days albuterol sulfate 90 mcg/actuation 1 inh inhalation QID PRN 8.5 grams 0RF shortness of breath or wheezing albuterol sulfate 2.5 mg (3 mL) inhalation Q4-6H PRN 90 mL 2RF shortness of breath or wheezing albuterol sulfate 2.5 mg (3 mL) inhalation Q4-6H PRN 90 mL 2RF shortness of breath or wheezing Coding Level of Care Code Est Pt Level 4 (39249) Diagnoses Viral syndrome B34.9 Asthma, unspecified asthma severity, unspecified whether complicated, unspecified whether persistent J45.909 Asthma complication type: unspecified Asthma persistence: unspecified Asthma severity: unspecified severity
[2023-03-25 12:42] VITALS: BP 112/72; PULSE 86; TEMP 37.7; O2SAT 95
== END 2023-03-25 15:09 | disposition home or self-care (01) ==
PROVIDERS: PCP Internal Medicine; Visit Provider Physician Assistant Medical
DX: B34.9 Viral infection, unspecified (principal); J45.909 Unspecified asthma, uncomplicated
CPT/HCPCS: 99214

== ENCOUNTER 2023-03-25 13:11 | Outpatient (REF) | payer MEDICARE, SELFPAY ==
[2023-03-25 15:20] LABS: Influenza A PCR POSITIVE (Negative); Influenza B PCR NEGATIVE (Negative); Resp Syncy Virus RNA Qual PCR NEGATIVE (Negative); SARS COV2 PCR INHOUSE NEGATIVE (Negative)
== END 2023-03-25 13:12 | disposition home or self-care (01) ==
LOC: HO.LNP 13:11
PROVIDERS: Visit Provider Physician Assistant Medical
DX: Z13.89 Encounter for screening for other disorder (principal)
CPT/HCPCS: 0241U

== ENCOUNTER 2023-03-25 13:17 | Outpatient (REF) | payer MEDICARE, SELFPAY ==
--- NOTE | ~2023-03-25 | XR_ITS ---
EXAMINATION: XR CHEST CLINICAL INFORMATION: Cough COMPARISON: None available. TECHNIQUE: 2 views of the chest were obtained. FINDINGS: No significant abnormality is noted involving the heart, lungs, mediastinum, bony thorax or soft tissues. There is linear atelectasis at the left lung base XR/XR chest 2V IMPRESSION: Left basilar atelectasis
== END 2023-03-25 13:18 | disposition home or self-care (01) ==
LOC: HO.HMGCX 13:17
PROVIDERS: PCP Internal Medicine; Visit Provider Physician Assistant Medical
DX: Z11.52 Encounter for screening for COVID-19 (principal); Z20.822 Contact with and (suspected) exposure to COVID-19; R05.9 Cough, unspecified
CPT/HCPCS: 0241U; 71046

== ENCOUNTER 2023-07-27 08:00 | Outpatient (REF) | payer MEDICARE, SELFPAY ==
[2023-07-27 10:48] LABS: Alanine Aminotransferase 77 U/L (0-31); Anion Gap 13 (12-20); Aspartate Amino Transferase 49 U/L (5-31); Blood Urea Nitrogen 15 mg/dL (9-16); Calcium 9.6 mg/dL (8.4-10.2); Carbon Dioxide 27 mmol/L (22-29); Chloride 105 mmol/L (96-108); Cholesterol 323 mg/dL (<200); Estimated Glomerular Filt Rate > 60; Glucose Fasting 95 mg/dL (60-99); HDL Cholesterol 74 mg/dL (>40); LDL Cholesterol Calculated 224 mg/dL (<100); Sodium 141 mmol/L (135-145); Triglycerides 127 mg/dL (<150)
[2023-07-27 11:04] LABS: Vitamin D 25-OH Total 41.7 ng/mL (>30)
[2023-07-27 11:07] LABS: Estimated Average Glucose 114 mg/dL; Hemoglobin A1c % 5.6 % (<6.0)
== END 2023-07-27 08:01 | disposition home or self-care (01) ==
LOC: HO.HMGCLDS 08:00
PROVIDERS: PCP Internal Medicine; Visit Provider Internal Medicine
DX: I10 Essential (primary) hypertension (principal); Z86.39 Personal history of other endocrine, nutritional and metabolic disease; R73.01 Impaired fasting glucose; R74.8 Abnormal levels of other serum enzymes; E55.9 Vitamin D deficiency, unspecified; E53.8 Deficiency of other specified B group vitamins
CPT/HCPCS: 36415; 80048; 80061; 82306; 82550; 83036; 84450; 84460

== ENCOUNTER 2023-07-28 09:50 | Outpatient (AMB) | payer MEDICARE, SELFPAY ==
--- NOTE | 2023-07-28 09:45 | MHC.PC.OV ---
Intake Visit Reasons: f/u lipids i phone [phone] Intake Note: Pt is having a TH visit to f/u lipids Allergies atorvastatin Adverse Reaction (Unknown, Verified 07/28/23 10:02) myalgia Medication List - Last Reconciled 07/28/23 by Flakita Beebe MD albuterol sulfate 90 mcg/actuation (ProAir HFA) 1 inh inhalation Q4H PRN albuterol sulfate 90 mcg/actuation 1 inh inhalation QID PRN albuterol sulfate 2.5 mg (3 mL) inhalation Q4-6H PRN cetirizine 10 mg PO BEDTIME fluticasone propionate 50 mcg/actuation 1 spray intranasal QAM 90 days lisinopril 20 mg PO DAILY lorazepam 1 mg PO DAILY PRN magnesium oxide 250 mg PO DAILY Tobacco use date assessed: 07/28/23 Fall risk assessment: No Falls in past year Last assessed Fall Risk: 07/28/23 Dental Screening Dental Screen Date: 07/28/23 Did you have a dental visit in the last 12 months?: No Was dental information given to patient?: Patient has dentist HPI f/u lipids i phone [phone] HPI Details 67-year-old lady with hyperlipidemia, here today for follow-up. She has stopped taking her statin, as she states it was giving her muscle pain and she frequently keeps forgetting to take it anyway. She has been trying to follow a healthy diet, and has been exercising daily with regular walks. Recent fasting labs showed markedly elevated LDL cholesterol at 224 mg per dL. [facility] Medical History (Updated 07/28/23 @ 10:22 by Flakita Beebe MD) Leg cramp Left shoulder pain Generalized anxiety disorder Abnormal colonoscopy Tubular adenoma of colon Essential hypertension History of vitamin D deficiency Patent foramen ovale with right to left shunt Impaired fasting glucose Vitamin D deficiency Dyslipidemia Surgical History Hx of colonoscopy Colloid cyst of brain Family History Father HTN (hypertension) Hyperlipidemia CAD (coronary artery disease) Alzheimer's disease CVD (cardiovascular disease) Mother Hyperlipidemia Son Bronchial asthma Mental health disorder Paternal Grandmother Alzheimer's disease Paternal Aunt Alzheimer's disease Paternal Uncle No problems noted. Brother No problems noted. Brother No problems noted. Brother No problems noted. Sister No problems noted. Son Bronchial asthma Daughter No problems noted. Social History Household Members Other:: - 3 children Housing: House Alcohol intake: current Alcohol intake frequency: holidays/special occasions only Patient Tobacco Use Status: Never used Tobacco e-Cigarette/Vaping Use: Never Used service: No Current occupational status: retired Cognitive needs: No Hearing needs: No Vision needs: Yes Questionnaire PHQ-9 Over the last 2 weeks, how often have you been bothered by any of the following problems? 1. Little interest or pleasure in doing things: not at all 2. Feeling down, depressed, or hopeless: not at all 3. Trouble falling or staying asleep, or sleeping too much: not at all 4. Feeling tired or having little energy: not at all 5. Poor appetite or overeating: not at all 6. Feeling bad about yourself - or that you are a failure or have let yourself or your family down: not at all 7. Trouble concentrating on things, such as reading the newspaper or watching television: not at all 8. Moving or speaking so slowly that other people could have noticed. Or the opposite - being so fidgety or restless that you have been moving around a lot more than usual: not at all 9. Thoughts that you would be better off or of hurting yourself in some way: not at all Total score: 0 Depression Screening Interpretation: Negative Depression Screening Done: Yes 48595 - PHQ-9 Billing: Yes Source: Developed by Drs. Brett Jarrett, Dariana Lowe, Torin Ma and colleagues, with an educational marcela from [employer]. Thrive Questionnaire Date Thrive assessed: 07/28/23 I am a: Patient What is your living situation today?: I have a steady place to live Within the past 12 months, did the food you bought not last and you didn't have the money to get more?: Never true Within the past 12 months, did you worry whether your food would run out before you got money to buy more?: Never true Do you have trouble paying for medicines?: No Do you have trouble getting transportation to medical appointments?: No Do you have trouble paying your heating and electricity bill?: No Do you have trouble taking care of your child, family member or friend?: No Do you have trouble with day-to-day activities such as bathing, preparing meals, shopping, managing finances, etc.?: No Are you currently unemployed and looking for a job?: No Are you interested in more education?: No THRIVE Score: 0 AUDIT C Alcohol Use Questionnaire (AUDIT-C) 1. How often do you have a drink containing alcohol?: Monthly or less 2. How many drinks containing alcohol do you have on a typical day when you are drinking?: 1 or 2 3. How often do you have six or more drinks on one occasion?: Never Total Score: 1 MER-7 AMB Questionnaire MER-7 Date MER - 7 assessed: 07/28/23 Feeling nervous, anxious, or on edge: 0 = Not at all Not being able to stop or control worryin = Several days Worrying too much about different things: 1 = Several days Trouble relaxin = Several days Being so restless that it is hard to sit still: 0 = Not at all Becoming easily annoyed or irritable: 0 = Not at all Feeling afraid as if something awful might happen: 0 = Not at all Total MER-7 score (0-4 normal; 5-9 mild; 10-14 moderate; 15-21 severe): 3 Source: Developed by Drs. Brett Jarrett, Dariana Lowe, Torin Ma and colleagues, with an educational marcela from [employer]. MER-7 Assessment Billing MER-7 Assessment Tool: MER-7 Assessment 53498 Review of Systems Const Denies fever(s) and Denies headache(s) ENT Denies dizziness, Denies headache(s) and Denies nasal discharge Card Denies chest pain, Denies lightheadedness and Denies dyspnea Resp Denies chest congestion, Denies cough and Denies dyspnea GI Denies abdominal pain, Denies change in bowel habits and Denies heartburn Musc Denies myalgias, Reports muscle cramps (When taking a statin), Denies muscle weakness and Denies stiffness Neuro Denies dizziness and Denies headache(s) Psych Reports no additional complaints Endo Reports no additional complaints Physical exam (Primary Care) Tobacco/Smoking Status: Tobacco use Status Tobacco use date assessed 07/28/23 07/28/23 09:46 Patient Tobacco Use Status Never used Tobacco 07/28/23 09:46 e-Cigarette/Vaping Use Never Used 07/28/23 09:46 PHQ-9: PHQ-9 Score PHQ-9: Total score 0 07/30/23 03:25 Depression Screening Interpretation: Negative Thrive Assessment: Date of Thrive Assessment Date Thrive assessed 07/28/23 07/28/23 09:50 Results Reviewed Results Reviewed: Name: Lee Ann Diaz Age/Sex: 67/F : 1955 Unit#: [id number] Attend Dr: Flakita Beebe MD Re07/27/23 Status: DEP [facility]F [facility] Disch: SPEC : [id number] DARRELL: 07/27/23 STATUS: COMP REQ : [id number] RECD: 07/27/23-[address]: Flakita Beebe MD COMP: 07/27/23-4 ENTERED: 07/27/23-[address]: ORDERED: Met Prof Fast, AST, ALT, CK Total, Lipid Panel, Vitamin D 25-OH Test Result Flag Reference Sodium 141 135-145 mmol/L Potassium 4.0 3.3-5.1 mmol/L CL 105 96-108 mmol/L CO2 27 22-29 mmol/L Gap 13 12-20 BUN 15 9-16 mg/dL Creat 0.83 0.5-1.4 mg/dL EGFR > 60 NOTE: For -[place] individuals, multiply the result by 1.210. Chronic Kidney Disease: Estimated GFR < 60 mL/min/1.73m2 Severe Kidney Disease: Estimated GFR < 15 mL/min/1.73m2 FBS 95 60-99 mg/dL CA 9.6 8.4-10.2 mg/dL AST (GOT) 49 H 5-31 U/L ALT (GPT) 77 H 0-31 U/L CK Total 111 26-140 U/L Triglyceride 127 <150 mg/dL Desirable Triglyceride: less than 150 mg/dL Borderline High Triglyceride 150-199 mg/dL High Triglyceride: 200-499 mg/dL Very High Triglyceride: greater than or equal to 5OO mg/dL Cholesterol 323 H <200 mg/dL Desirable Cholesterol: less than 200 mg/dL Borderline High Cholesterol: 200-239 mg/dL High Cholesterol: greater than 239 mg/dL LDL Calculated 224 H <100 mg/dL Desirable LDL: less than 100 mg/dL Near Optimal/Above Optimal LDL: 110-129 mg/dL Borderline High LDL: 130-159 mg/dL High LDL: 160-189 mg/dL Very High LDL: greater than or equal to 190 mg/dL HDL 74 >40 mg/dL Desirable HDL: greater than 40 mg/dL Note: This HDL assay may give artificially low results in patients with liver disease. Vit D 25-OH Tot 41.7 >30 ng/mL Health Based Reference Values* < 20 ng/mL Deficient 20-30 ng/mL Insufficient > 30 ng/mL Sufficient *Linda BONE. N Engl J Med. 2007;[id number]:[id number] Assessment and Plan Assessment & Plan (1) Dyslipidemia: Code(s): E78.5 - Hyperlipidemia, unspecified Plan: Reviewed recent fasting lipid profile with patient with marked elevation in her total cholesterol and LDL cholesterol . Restarted back on pravastatin at 80 mg at bedtime, take it together with Co Q10 50 mg daily , in addition to adherence to low-cholesterol diet and regular exercise, at least 30 minutes 3 to 4 times a week. Advised patient to make healthy food choices, eat more fruits, vegetables, whole grains, wild caught fish and low-fat dairy. Limit amount of meat and fried or fatty food products, as well as processed foods and fast foods. Follow-up scheduled with repeat fasting lipid panel in November 2023 prior to appointment (2) Leg cramp: Code(s): R25.2 - Cramp and spasm Plan: Increase dose of your magnesium supplement 400 mg daily, stay well-hydrated Orders: Orders Aspartate Amino Transferase 11/12/23 E55.9 - Vitamin D deficiency, unspecified, E78.5 - Hyperlipidemia, unspecified, I10 - Essential (primary) hypertension, R25.2 - Cramp and spasm Vitamin D 25-OH Total 11/12/23 E55.9 - Vitamin D deficiency, unspecified, E78.5 - Hyperlipidemia, unspecified, I10 - Essential (primary) hypertension, R25.2 - Cramp and spasm Lipid Panel 11/12/23 E55.9 - Vitamin D deficiency, unspecified, E78.5 - Hyperlipidemia, unspecified, I10 - Essential (primary) hypertension, R25.2 - Cramp and spasm Basic Metabolic Panel Fasting 11/12/23 E55.9 - Vitamin D deficiency, unspecified, E78.5 - Hyperlipidemia, unspecified, I10 - Essential (primary) hypertension, R25.2 - Cramp and spasm Alanine Aminotransferase 11/12/23 E55.9 - Vitamin D deficiency, unspecified, E78.5 - Hyperlipidemia, unspecified, I10 - Essential (primary) hypertension, R25.2 - Cramp and spasm Magnesium 11/12/23 E55.9 - Vitamin D deficiency, unspecified, E78.5 - Hyperlipidemia, unspecified, I10 - Essential (primary) hypertension, R25.2 - Cramp and spasm Medications: New pravastatin 80 mg PO BEDTIME 90 tabs 1RF Coding Level of Care Code Tele Est Pt Level 4 (69787) Diagnoses Dyslipidemia E78.5 Leg cramp R25.2 Additional Codes MER-7 Assessment Billing - MER-7 Assessment Tool: MER-7 Assessment 23659 ([id number])
== END 2023-07-28 14:08 | disposition home or self-care (01) ==
LOC: HO.HMGC 09:50
PROVIDERS: PCP Internal Medicine; Visit Provider Internal Medicine
DX: E78.5 Hyperlipidemia, unspecified (principal); R25.2 Cramp and spasm
CPT/HCPCS: 99214

== ENCOUNTER 2023-12-06 08:19 | Outpatient (REF) | payer MEDICARE, SELFPAY ==
[2023-12-06 10:50] LABS: Alanine Aminotransferase 21 U/L (0-31); Anion Gap 11 (12-20); Aspartate Amino Transferase 22 U/L (5-31); Blood Urea Nitrogen 9 mg/dL (9-16); Calcium 9.6 mg/dL (8.4-10.2); Carbon Dioxide 26 mmol/L (22-29); Chloride 109 mmol/L (96-108); Cholesterol 212 mg/dL (<200); Estimated Glomerular Filt Rate > 60; Glucose Fasting 95 mg/dL (60-99); HDL Cholesterol 59 mg/dL (>40); LDL Cholesterol Calculated 125 mg/dL (<100); Magnesium 1.8 mg/dL (1.6-2.6); Potassium 3.8 mmol/L (3.3-5.1); Sodium 142 mmol/L (135-145); Triglycerides 141 mg/dL (<150)
[2023-12-06 11:07] LABS: Vitamin D 25-OH Total 36.7 ng/mL (>30)
== END 2023-12-06 08:20 | disposition home or self-care (01) ==
LOC: HO.HMGCLDS 08:19
PROVIDERS: PCP Internal Medicine; Visit Provider Internal Medicine
DX: R25.2 Cramp and spasm (principal); I10 Essential (primary) hypertension; E55.9 Vitamin D deficiency, unspecified; E78.5 Hyperlipidemia, unspecified
CPT/HCPCS: 36415; 80048; 80061; 82306; 83735; 84450; 84460

== ENCOUNTER 2023-12-07 10:47 | Outpatient (AMB) | payer MEDICARE, SELFPAY ==
--- NOTE | 2023-12-07 11:31 | A.OFFPC_ITS ---
Vital Signs 12/07/23 11:33 Height 5 ft 7 in Weight 216 lb BMI 33.8 BP 135/86 Blood Pressure Location Rt brachial Position Sitting Pulse 72 Pulse Source Pulse Oximeter Pulse Oximetry (%) 98 Oxygen Delivery Method Room Air Intake Visit Reasons: Follow up HTN, Lipids Intake Note: Pt is here today for her f/u HTN and lipids Allergies atorvastatin Adverse Reaction (Unknown, Verified 12/07/23 11:50) myalgia Medication List - Last Reconciled 12/07/23 by Flakita Beebe MD albuterol sulfate 90 mcg/actuation (ProAir HFA) 1 inh inhalation Q4H PRN albuterol sulfate 90 mcg/actuation 1 inh inhalation QID PRN albuterol sulfate 2.5 mg (3 mL) inhalation Q4-6H PRN cetirizine 10 mg PO BEDTIME fluticasone propionate 50 mcg/actuation 1 spray intranasal QAM 90 days lisinopril 20 mg PO DAILY lorazepam 1 mg PO DAILY PRN magnesium oxide 250 mg PO DAILY pravastatin 80 mg PO BEDTIME Tobacco use date assessed: 12/07/23 Fall risk assessment: No Falls in past year Last assessed Fall Risk: 12/07/23 Dental Screening Dental Screen Date: 12/07/23 Did you have a dental visit in the last 12 months?: No Did you have a dental problem in the last 6 months where you did not have access to dental care?: No Was dental information given to patient?: No HPI Follow up HTN, Lipids HPI Details 68-year-old lady with hypertension and h yperlipidemia, here today for follow-up. She has stopped taking her atorvastatin, as she states it was giving her muscle pain and she frequently keeps forgetting to take it anyway. Started on pravastatin 80 mg bedtime, and has been taking it regularly. Recent fasting labs done showed marked improvement in her lipids as compared to previous check. She is currently taking lisinopril 20 mg for her hypertension, with blood pressure stable and controlled on present dose. Has been feeling well except for pain in her right shoulder joint and left knee joint, no history of trauma. Has been taking [id number] NSAIDs which does not afford any relief. [facility] Medical History (Updated 12/10/23 @ 19:07 by Flakita Beebe MD) Left knee pain Leg cramp Left shoulder pain Generalized anxiety disorder Abnormal colonoscopy Tubular adenoma of colon Essential hypertension History of vitamin D deficiency Patent foramen ovale with right to left shunt Impaired fasting glucose Vitamin D deficiency Dyslipidemia Surgical History Hx of colonoscopy Colloid cyst of brain Family History Father HTN (hypertension) Hyperlipidemia CAD (coronary artery disease) Alzheimer's disease CVD (cardiovascular disease) Mother Hyperlipidemia Son Bronchial asthma Mental health disorder Paternal Grandmother Alzheimer's disease Paternal Aunt Alzheimer's disease Paternal Uncle No problems noted. Brother No problems noted. Brother No problems noted. Brother No problems noted. Sister No problems noted. Son Bronchial asthma Daughter No problems noted. Social History Household Members Other:: - 3 children Housing: House Alcohol intake: current Alcohol intake frequency: holidays/special occasions only Patient Tobacco Use Status: Never used Tobacco e-Cigarette/Vaping Use: Never Used service: No Current occupational status: retired Cognitive needs: No Hearing needs: No Vision needs: Yes Questionnaire Thrive Questionnaire Date Thrive assessed: 07/28/23 MER-7 AMB Questionnaire MER-7 Date MER - 7 assessed: 07/28/23 Source: Developed by Drs. Brett Jarrett, Dariana Lowe, Torin Ma and colleagues, with an educational marcela from [employer]. Review of Systems Const Denies fever(s) and Denies headache(s) ENT Denies dizziness, Denies headache(s), Reports nasal congestion, Reports post nasal drip, Denies sinus pain and Denies sore throat Card Denies chest pain, Denies lightheadedness and Denies dyspnea Resp Denies chest congestion, Denies cough and Denies dyspnea GI Denies abdominal pain, Denies change in bowel habits and Denies heartburn Musc Reports as per HPI, Denies muscle cramps (When taking a statin) and Reports stiffness Neuro Denies dizziness and Denies headache(s) Psych Reports no additional complaints Endo Reports no additional complaints Aller/Immun Reports seasonal rhinorrhea Physical exam (Primary Care) Vital Signs: Last Vital Signs Pulse 72 12/07/23 11:33 BP 135/86 12/07/23 11:33 Pulse Ox 98 12/07/23 11:33 Oxygen Delivery Method Room Air 12/07/23 11:33 BMI result Body Mass Index 33.8 Tobacco/Smoking Status: Tobacco use Status Tobacco use date assessed 12/07/23 12/07/23 11:37 Patient Tobacco Use Status Never used Tobacco 12/07/23 11:32 e-Cigarette/Vaping Use Never Used 12/07/23 11:32 Thrive Assessment: Date of Thrive Assessment Date Thrive assessed 07/28/23 12/07/23 11:32 Const Other: Alert oriented x3, no acute distress noted , normal gait Orientation/consciousness: oriented to person and patient oriented x3 Neck Neck: Yes full ROM, Yes no lymphadenopathy and Yes supple Resp Effort & Inspection: normal respiratory effort and able to speak in complete sentences Auscultation: clear to auscultation bilaterally Cardio Rate: regular rate Rhythm: regular rhythm Heart sounds: S1 normal heart sound present and S2 normal heart sound present GI Palpation (GI): Soft to palpation, nontender, no guarding and no masses Auscultation: normal bowel sounds Skin General skin exam: no rashes or lesions noted Neuro General: oriented to person, patient oriented x3, gait normal, tone normal, Normal light touch and pain sensation, no focal motor deficits and CN's II-XI intact bilaterally Extrem Other: Tenderness on palpation over left knee joint, with decreased range of motion of left shoulder especially on overhead movement Psych Appearance: grossly normal and well kempt Mental Status: mental status grossly normal Speech and movement: Normal speech and movement present Affect: normal affect Attitude: cooperative Thought process: Normal thought process present Results Reviewed Results Reviewed: antonia: Lee Ann Diaz Age/Sex: 68/F : 1955 Unit#: [id number] Attend Dr: Flakita Beebe MD Re12/06/23 Status: DEP [facility] Disch: SPEC : [id number] DARRELL: 12/06/23 STATUS: COMP REQ : [id number] RECD: 12/06/23-[address]: Flakita Beebe MD COMP: 12/06/23 ENTERED: 12/06/2301 [facility] DR: ORDERED: Met Prof Fast, MG, AST, ALT, Lipid Panel, Vitamin D 25-OH Test Result Flag Reference Sodium 142 135-145 mmol/L Potassium 3.8 3.3-5.1 mmol/L CL 109 H 96-108 mmol/L CO2 26 22-29 mmol/L Gap 11 L 12-20 BUN 9 9-16 mg/dL Creat 0.86 0.5-1.4 mg/dL EGFR > 60 NOTE: For -[place] individuals, multiply the result by 1.210. Chronic Kidney Disease: Estimated GFR < 60 mL/min/1.73m2 Severe Kidney Disease: Estimated GFR < 15 mL/min/1.73m2 FBS 95 60-99 mg/dL CA 9.6 8.4-10.2 mg/dL Magnesium 1.8 1.6-2.6 mg/dL AST (GOT) 22 5-31 U/L ALT (GPT) 21 0-31 U/L Triglyceride 141 <150 mg/dL Desirable Triglyceride: less than 150 mg/dL Borderline High Triglyceride 150-199 mg/dL High Triglyceride: 200-499 mg/dL Very High Triglyceride: greater than or equal to 5OO mg/dL Cholesterol 212 H <200 mg/dL Desirable Cholesterol: less than 200 mg/dL Borderline High Cholesterol: 200-239 mg/dL High Cholesterol: greater than 239 mg/dL LDL Calculated 125 H <100 mg/dL Desirable LDL: less than 100 mg/dL Near Optimal/Above Optimal LDL: 110-129 mg/dL Borderline High LDL: 130-159 mg/dL High LDL: 160-189 mg/dL Very High LDL: greater than or equal to 190 mg/dL HDL 59 >40 mg/dL Desirable HDL: greater than 40 mg/dL Note: This HDL assay may give artificially low results in patients with liver disease. Vit D 25-OH Tot 36.7 >30 ng/mL Health Based Reference Values* < 20 ng/mL Deficient 20-30 ng/mL Insufficient > 30 ng/mL Sufficient Assessment and Plan Assessment & Plan (1) Dyslipidemia: Code(s): E78.5 - Hyperlipidemia, unspecified Plan: Recent fasting lipids showed results within normal limits, continue on pravastatin 80 mg at bedtime, in addition to adherence to healthy eating habits and regular exercise. (2) Essential hypertension: Code(s): I10 - Essential (primary) hypertension Plan: Blood pressure at goal of less than 130/80. Continue with current medication. Reinforced importance of following a low sodium diet, getting regular exercise, and lowering stress levels. (3) Left knee pain: Code(s): M25.562 - Pain in left knee Qualifiers: Chronicity: chronic Qualified Code(s): M25.562 - Pain in left knee; G89.29 - Other chronic pain Plan: Referred to orthopedics for further evaluation management (4) Right shoulder pain: Code(s): M25.511 - Pain in right shoulder Qualifiers: Chronicity: acute Qualified Code(s): M25.511 - Pain in right shoulder Plan: X-ray of right shoulder ordered (5) Other allergic rhinitis: Code(s): J30.89 - Other allergic rhinitis Plan: Refill sent for fluticasone propionate 50 mcg nasal spray 1 inhalation per nostril in a.m. Orders: Orders XR shoulder RT min 2V 12/07/23 M25.511 - Pain in right shoulder, M25.562 - Pain in left knee Referrals Orthopedics Referral M25.562 - Pain in left knee Medications: Refilled fluticasone propionate 50 mcg/actuation 1 spray intranasal QAM 48 grams 3RF 90 days Coding Level of Care Code Est Pt Level 4 (53476) Complex EM visit Add On G2211 Diagnoses Dyslipidemia E78.5 Essential hypertension I10 Chronic pain of left knee M25.562; G89.29 Chronicity: chronic Acute pain of right shoulder M25.511 Chronicity: acute Other allergic rhinitis J30.89
[2023-12-07 11:33] VITALS: BP 135/86; PULSE 72; O2SAT 98; BMI 33.8
== END 2023-12-07 12:11 | disposition home or self-care (01) ==
PROVIDERS: PCP Internal Medicine; Visit Provider Internal Medicine
DX: E78.5 Hyperlipidemia, unspecified (principal); I10 Essential (primary) hypertension; M25.562 Pain in left knee; G89.29 Other chronic pain; M25.511 Pain in right shoulder; J30.89 Other allergic rhinitis

== ENCOUNTER → 2023-12-07 10:47 | Outpatient (BNVA) | payer MEDICARE, SELFPAY | PROVIDERS: PCP Internal Medicine; Visit Provider Internal Medicine | DX: E78.5 Hyperlipidemia, unspecified (principal); I10 Essential (primary) hypertension; M25.562 Pain in left knee; M25.511 Pain in right shoulder; G89.29 Other chronic pain; J30.89 Other allergic rhinitis | CPT/HCPCS: 73030; 73560; 99212 ==

== ENCOUNTER 2023-12-07 12:13 | Outpatient (REF) | payer MEDICARE, SELFPAY ==
--- NOTE | ~2023-12-07 | XR_ITS ---
EXAMINATION: XR SHOULDER, RIGHT CLINICAL INFORMATION: M25.562 - Pain in left knee COMPARISON: None available. TECHNIQUE: AP external rotation, Grashey, scapular Y, and axillary views of the right shoulder. FINDINGS: Mild diffuse osteopenia. No fracture, dislocation, or suspicious bone lesion. The right shoulder joint is normally aligned. Moderate osteoarthrosis noted in the glenohumeral joint, with productive undersurface marginal osteophytes. Relative preservation of joint space given appearance. AC joint demonstrates mild predominately superior surface spurring without significant undersurface spurring. There is no solid impingement. Neutral lateral acromion. No spurs. Right shoulder soft tissues appear normal without abnormal calcification. Remainder of soft tissues and bones appear normal. XR/XR shoulder RT min 2V IMPRESSION: 1. No acute findings right shoulder. 2. Moderate osteoarthrosis glenohumeral joint. Mild degenerative arthrosis AC joint. Electronically signed by: Timmy Sutherland MD 02/13/2024 03:42 PM [facility]
--- NOTE | ~2023-12-07 | XR_ITS ---
EXAMINATION: XR KNEE, LEFT CLINICAL INFORMATION: M25.562 - Pain in left knee COMPARISON: 12/15/2014. TECHNIQUE: Four views of the left knee. FINDINGS: Normal bony mineralization. No fracture, dislocation, or suspicious bone lesion. Moderate to severe changes of osteoarthrosis with joint space narrowing and prominent marginal osteophytic spurring in all 3 compartments. This has significantly progressed since 2014. Spurring of the tibial spines. Suspect a prominent suprapatellar joint effusion. Normal soft tissues. XR/XR knee LT 2V IMPRESSION: 1. No acute findings left knee. 2. Moderate to severe tricompartmental osteoarthrosis, significantly progressed since 2014. 3. Prominent suprapatellar joint effusion suspected. Electronically signed by: Timmy Sutherland MD 02/13/2024 03:39 PM [facility]
== END 2023-12-07 12:14 | disposition home or self-care (01) ==
LOC: HO.HMGCX 12:13
PROVIDERS: PCP Internal Medicine; Visit Provider Internal Medicine
DX: M25.562 Pain in left knee (principal); M25.511 Pain in right shoulder
CPT/HCPCS: 73030; 73560

== ENCOUNTER → 2023-12-07 12:17 | Outpatient (BNV) | payer MEDICARE, SELFPAY | PROVIDERS: PCP Internal Medicine; Visit Provider Radiology Diagnostic Radiology | DX: M25.511 Pain in right shoulder (principal); M25.562 Pain in left knee | CPT/HCPCS: 73030; 73560 ==

== ENCOUNTER 2024-01-01 09:48 | Outpatient (AMB) | payer MEDICARE, SELFPAY ==
--- NOTE | 2024-01-01 10:03 | A.OFFVIS_ITS ---
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 Pt denies any injury to her knee. Patient reports ongoing pain for about a year. Pt states she has been taking OTC medications with no relief. Hx of injections with Dr. Gamble with relief but over time it didn't give her relief. Patient is looking to get an injection. 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 A referral was placed by her PCP, Dr. Flakita Beebe, for the evaluation of left knee pain. The patient saw her PCP on 12/07/23 when she reported left knee pain. She denied any history of traumas in the left knee. She has been taking OTC NSAIDs for pain without any relief. While in the office today, the patient reports experiencing left knee pain, which has been ongoing for about a year. She confirms taking OTC medication without any relief. She received cortisone injections with Dr. Gamble in the past, which initially provided relief; however, later it did not give her relief. She would like to have an injection today. [facility] Medical History (Updated 01/01/24 @ 10:27 by Haven Bender) Left knee pain Leg cramp Left shoulder pain Generalized anxiety disorder Abnormal colonoscopy Tubular adenoma of colon Essential hypertension History of vitamin D deficiency Patent foramen ovale with right to left shunt Impaired fasting glucose Vitamin D deficiency Dyslipidemia Surgical History Hx of colonoscopy Colloid cyst of brain Family History Father HTN (hypertension) Hyperlipidemia CAD (coronary artery disease) Alzheimer's disease CVD (cardiovascular disease) Mother Hyperlipidemia Son Bronchial asthma Mental health disorder Paternal Grandmother Alzheimer's disease Paternal Aunt Alzheimer's disease Paternal Uncle No problems noted. Brother No problems noted. Brother No problems noted. Brother No problems noted. Sister No problems noted. Son Bronchial asthma Daughter No problems noted. Social History Household Members Other:: - 3 children Housing: House Alcohol intake: current Alcohol intake frequency: holidays/special occasions only Patient Tobacco Use Status: Never used Tobacco e-Cigarette/Vaping Use: Never Used service: No Current occupational status: retired Cognitive needs: No Hearing needs: No Vision needs: Yes Review of Systems Const All systems reviewed & are unremarkable except as noted in HPI and below Physical Exam Vital Signs: BMI result Body Mass Index 33.8 Const General: cooperative and no acute distress Orientation/consciousness: patient oriented x3 Resp Effort & Inspection: normal respiratory effort and able to speak in complete sentences Cardio Peripheral pulses: Peripheral pulses 2+ throughout Skin General skin exam: no rashes or lesions noted Neuro General: patient oriented x3 Extrem Other: Left knee: Normal to inspection. No ecchymosis, erythema, or joint effusion. No tenderness to palpation along the medial or lateral joint lines. Full knee extension and flexion.Crepitus is felt with ROM. NVI. Office Procedures Joint Injection/Aspiration Joint Injection/Aspiration Primary Site: left knee Prep: site was prepped using aseptic technique and ethochloride spray was applied Injected: 80 mg of, DepoMedrol, with 8 mL of (2% plain lido ) and in the joint Approach Used: anterolateral Procedure: The patient tolerated the procedure well, but had some pain with the injection and there was some relief with the local anesthesia Coding 72801 - Large joint Procedure code (CPT) selection complete Assessment & Plan Assessment & Plan (1) Osteoarthritis of left knee: Code(s): M17.12 - Unilateral primary osteoarthritis, left knee Category: Medical Plan 68-year-old female who presents in the office today, as a new patient, for an evaluation of left knee pain. A referral was placed by her PCP, Dr. Flakita Beebe, for the evaluation of left knee pain. The patient saw her PCP on 12/07/23 when she reported left knee pain. She denied any history of traumas in the left knee. She has been taking OTC NSAIDs for pain without any relief. While in the office today, the patient reports experiencing left knee pain, which has been ongoing for about a year. She confirms taking OTC medication without any relief. She received cortisone injections with Dr. Gamble in the past, which initially provided relief; however, later it did not give her relief. She would like to have an injection today. The patient was offered a cortisone injection in the left knee with 80 mg of Depo-Medrol. The patient was explained the risks, benefits, and alternatives to receiving this injection. After receiving consent for the injection, the patient had the procedure done while in the office today. The patient tolerated the procedure well with no complication. Follow-up will be PRN, or sooner if needed. X-rays of the left knee which were obtained while in the office today and were reviewed by Brigette brooks PA-C, revealed: Osteoarthritis of the left knee. Orders: Orders XR knee LT 1V Today Destiny Rao PA-C M25.562 - Pain in left knee XR knee RT 2V Today Destiny Rao PA-C M25.569 - Pain in unspecified knee XR knee RT 1V Today Brigette Arias PA-C M25.569 - Pain in unspecified knee XR knee LT 2V Today Brigette Arias PA-C M25.569 - Pain in unspecified knee Patient Instructions: Scribed by Haven Bender, medical appointment clerk, for Brigette Arias PA-C on 01/01/24 at 10:20 am EST. Coding Level of Care Code New Pt Level 3 (97315) Diagnoses Osteoarthritis of left knee M17.12 CPT Codes Coding - 70834 Large joint: 05528 - Large joint ([id number])
[2024-01-01 10:09] VITALS: BMI 33.8
== END 2024-01-01 10:16 | disposition home or self-care (01) ==
PROVIDERS: PCP Internal Medicine; Visit Provider Physician Assistant
DX: M17.12 Unilateral primary osteoarthritis, left knee (principal)
CPT/HCPCS: 20610; 99203

== ENCOUNTER 2024-01-01 09:56 | Outpatient (REF) | payer MEDICARE, SELFPAY ==
--- NOTE | ~2024-01-01 | XR_ITS ---
EXAMINATION: Bilateral knee series CLINICAL INFORMATION: Pain in knee COMPARISON: X-rays of the left knee November 2023 and December 2014 TECHNIQUE: AP upright view of both knees. Patella view of left knee FINDINGS: Right knee limited: There is joint space narrowing marginal osteophytes about the medial compartment. Lateral compartment normal. Cannot assess patellofemoral compartment on AP projection. Surrounding bone and soft tissues unremarkable. Left knee: Mild genu varus Medial compartment there is joint space narrowing and marginal osteophytes indicative of mhwo-vs-dknrslvn osteoarthritis. Patellofemoral compartment marginal osteophytes without joint space narrowing indicative of mild osteoarthritis moderate osteoarthritis. Lateral compartment: Marginal osteophytes without joint space narrowing perhaps related to the genu varus. Mild to moderate osteoarthritis. XR/XR knee LT 2V IMPRESSION: RIGHT KNEE: Osteoarthritis LEFT KNEE: Osteoarthritis with degenerative changes most prominent medial compartment being [id number]. No change compared with 12/07/2023 Electronically signed by: Edwardo Bone MD 01/05/2024 10:00 PM EDT
--- NOTE | ~2024-01-01 | XR_ITS ---
EXAMINATION: Bilateral knee series CLINICAL INFORMATION: Pain in knee COMPARISON: X-rays of the left knee November 2023 and December 2014 TECHNIQUE: AP upright view of both knees. Patella view of left knee FINDINGS: Right knee limited: There is joint space narrowing marginal osteophytes about the medial compartment. Lateral compartment normal. Cannot assess patellofemoral compartment on AP projection. Surrounding bone and soft tissues unremarkable. Left knee: Mild genu varus Medial compartment there is joint space narrowing and marginal osteophytes indicative of azco-te-wbbaswqp osteoarthritis. Patellofemoral compartment marginal osteophytes without joint space narrowing indicative of mild osteoarthritis moderate osteoarthritis. Lateral compartment: Marginal osteophytes without joint space narrowing perhaps related to the genu varus. Mild to moderate osteoarthritis. XR/XR knee RT 1V IMPRESSION: RIGHT KNEE: Osteoarthritis LEFT KNEE: Osteoarthritis with degenerative changes most prominent medial compartment being [id number]-[id number]. No change compared with 12/07/2023 Electronically signed by: Edwardo Bone MD 01/05/2024 10:00 PM EDT
== END 2024-01-01 09:57 | disposition home or self-care (01) ==
LOC: HO.HOSX 09:56
PROVIDERS: Visit Provider Physician Assistant
DX: M17.12 Unilateral primary osteoarthritis, left knee (principal)
CPT/HCPCS: 20610; 73560; 99202; J1010; J2003

== ENCOUNTER 2024-03-28 08:45 | Outpatient (REF) | payer MEDICARE, SELFPAY ==
[2024-03-28 11:06] LABS: Alanine Aminotransferase 34 U/L (0-31); Anion Gap 10 (12-20); Aspartate Amino Transferase 27 U/L (5-31); Blood Urea Nitrogen 13 mg/dL (9-16); Calcium 9.8 mg/dL (8.4-10.2); Carbon Dioxide 30 mmol/L (22-29); Chloride 105 mmol/L (96-108); Cholesterol 246 mg/dL (<200); Estimated Glomerular Filt Rate > 60; Glucose Fasting 99 mg/dL (60-99); HDL Cholesterol 65 mg/dL (>40); LDL Cholesterol Calculated 155 mg/dL (<100); Potassium 4.3 mmol/L (3.3-5.1); Sodium 141 mmol/L (135-145); Triglycerides 134 mg/dL (<150)
[2024-03-28 11:27] LABS: Vitamin D 25-OH Total 35.2 ng/mL (>30)
== END 2024-03-28 08:46 | disposition home or self-care (01) ==
LOC: HO.HMGCLDS 08:45
PROVIDERS: PCP Internal Medicine; Visit Provider Internal Medicine
DX: F41.1 Generalized anxiety disorder (principal); Z86.39 Personal history of other endocrine, nutritional and metabolic disease; I10 Essential (primary) hypertension; R73.01 Impaired fasting glucose; E55.9 Vitamin D deficiency, unspecified; E78.5 Hyperlipidemia, unspecified
CPT/HCPCS: 36415; 80048; 80061; 82306; 84450; 84460

== ENCOUNTER 2024-03-29 13:10 | Outpatient (AMB) | payer MEDICARE, SELFPAY ==
--- NOTE | 2024-03-29 13:07 | MHC.PC.OV ---
Intake Visit Reasons: F/U Cholesterol Allergies atorvastatin Adverse Reaction (Unknown, Verified 03/29/24 13:21) myalgia Medication List - Last Reconciled 03/29/24 by Flakita Beebe MD albuterol sulfate 90 mcg/actuation (ProAir HFA) 1 inh inhalation Q4H PRN albuterol sulfate 90 mcg/actuation 1 inh inhalation QID PRN albuterol sulfate 2.5 mg (3 mL) inhalation Q4-6H PRN cetirizine 10 mg PO BEDTIME fluticasone propionate 50 mcg/actuation 1 spray intranasal QAM 90 days lisinopril 20 mg PO DAILY lorazepam 1 mg PO DAILY PRN magnesium oxide 250 mg PO DAILY pravastatin 80 mg PO BEDTIME Tobacco use date assessed: 03/29/24 Fall risk assessment: No Falls in past year Last assessed Fall Risk: 03/29/24 Dental Screening Dental Screen Date: 03/29/24 Did you have a dental visit in the last 12 months?: No Did you have a dental problem in the last 6 months where you did not have access to dental care?: No Was dental information given to patient?: Patient has dentist HPI F/U Cholesterol HPI Details Telehealth visit made today for follow-up regarding cholesterol levels. Currently on pravastatin 80 mg at bedtime, however she has not been very compliant with recommended diet during the holiday. [facility] Medical History (Updated 03/29/24 @ 13:37 by Flakita Beebe MD) History of vitamin D deficiency Left knee pain Leg cramp Left shoulder pain Generalized anxiety disorder Abnormal colonoscopy Tubular adenoma of colon Essential hypertension Patent foramen ovale with right to left shunt Impaired fasting glucose Vitamin D deficiency Dyslipidemia Surgical History Hx of colonoscopy Colloid cyst of brain Family History Father HTN (hypertension) Hyperlipidemia CAD (coronary artery disease) Alzheimer's disease CVD (cardiovascular disease) Mother Hyperlipidemia Son Bronchial asthma Mental health disorder Paternal Grandmother Alzheimer's disease Paternal Aunt Alzheimer's disease Paternal Uncle No problems noted. Brother No problems noted. Brother No problems noted. Brother No problems noted. Sister No problems noted. Son Bronchial asthma Daughter No problems noted. Social History Household Members Other:: - 3 children Housing: House Alcohol intake: current Alcohol intake frequency: holidays/special occasions only Patient Tobacco Use Status: Never used Tobacco e-Cigarette/Vaping Use: Never Used service: No Current occupational status: retired Cognitive needs: No Hearing needs: No Vision needs: Yes Questionnaire PHQ-9 Over the last 2 weeks, how often have you been bothered by any of the following problems? 1. Little interest or pleasure in doing things: not at all 2. Feeling down, depressed, or hopeless: not at all 3. Trouble falling or staying asleep, or sleeping too much: not at all 4. Feeling tired or having little energy: not at all 5. Poor appetite or overeating: not at all 6. Feeling bad about yourself - or that you are a failure or have let yourself or your family down: not at all 7. Trouble concentrating on things, such as reading the newspaper or watching television: not at all 8. Moving or speaking so slowly that other people could have noticed. Or the opposite - being so fidgety or restless that you have been moving around a lot more than usual: not at all 9. Thoughts that you would be better off or of hurting yourself in some way: not at all Total score: 0 Depression Screening Interpretation: Negative Depression Screening Done: Yes 88501 - PHQ-9 Billing: Yes Source: Developed by Drs. Brett Jarrett, Dariana Lowe, Torin Ma and colleagues, with an educational marcela from [employer]. Thrive Questionnaire Date Thrive assessed: 03/29/24 I am a: Patient What is your living situation today?: I have a steady place to live Within the past 12 months, did the food you bought not last and you didn't have the money to get more?: Never true Within the past 12 months, did you worry whether your food would run out before you got money to buy more?: Never true Do you have trouble paying for medicines?: No Do you have trouble getting transportation to medical appointments?: No Do you have trouble paying your heating and electricity bill?: No Do you have trouble taking care of your child, family member or friend?: No Do you have trouble with day-to-day activities such as bathing, preparing meals, shopping, managing finances, etc.?: No Are you currently unemployed and looking for a job?: No Are you interested in more education?: No THRIVE Score: 0 AUDIT C Alcohol Use Questionnaire (AUDIT-C) 1. How often do you have a drink containing alcohol?: Never Total Score: 0 MER-7 AMB Questionnaire MER-7 Date MER - 7 assessed: 03/29/24 Feeling nervous, anxious, or on edge: 0 = Not at all Not being able to stop or control worryin = Not at all Worrying too much about different things: 0 = Not at all Trouble relaxin = Not at all Being so restless that it is hard to sit still: 0 = Not at all Becoming easily annoyed or irritable: 0 = Not at all Feeling afraid as if something awful might happen: 0 = Not at all Total MER-7 score (0-4 normal; 5-9 mild; 10-14 moderate; 15-21 severe): 0 Source: Developed by Drs. Brett Jarrett, Dariana Lowe, Torin Ma and colleagues, with an educational marcela from [employer]. MER-7 Assessment Billing MER-7 Assessment Tool: MER-7 Assessment 02883 Review of Systems Const Denies fever(s) and Denies headache(s) ENT Denies dizziness, Denies headache(s) and Denies sore throat Card Denies chest pain, Denies lightheadedness and Denies dyspnea Resp Denies chest congestion, Denies cough and Denies dyspnea GI Denies abdominal pain, Denies change in bowel habits and Denies heartburn Musc Denies muscle cramps (When taking a statin) and Reports stiffness Neuro Denies dizziness and Denies headache(s) Psych Reports no additional complaints Endo Reports no additional complaints Aller/Immun Reports seasonal rhinorrhea Physical exam (Primary Care) Tobacco/Smoking Status: Tobacco use Status Tobacco use date assessed 03/29/24 03/29/24 13:09 Patient Tobacco Use Status Never used Tobacco 03/29/24 13:09 e-Cigarette/Vaping Use Never Used 03/29/24 13:09 PHQ-9: PHQ-9 Score PHQ-9: Total score 0 03/29/24 13:23 Depression Screening Interpretation: Negative Thrive Assessment: Date of Thrive Assessment Date Thrive assessed 03/29/24 03/29/24 13:09 Telehealth Telehealth Telehealth Platform: [employer] Location of provider rendering services: practice address Location of patient: address on file Patient Identification confirmed using: Name, : Yes Telehealth method: video Patient verbally consented to treatment: Yes Patient verbally consented to billing insurance company: Yes Patient informed of any privacy concerns related to visit: Yes Minutes spent on Phone/Video with Pt.: 15 Results Reviewed Results Reviewed: Name: Lee Ann Diaz Age/Sex: 68/F : 1955 Unit#: [id number] Attend Dr: Flakita Beebe MD Re03/28/24 Status: DEP [facility] Disch: SPEC : [id number] DARRELL: 03/28/24 STATUS: COMP REQ : [id number] RECD: 03/28/24-[address]: Flakita Beebe MD COMP: 03/28/247 ENTERED: 03/28/24-[address]: ORDERED: Met Prof Fast, AST, ALT, Lipid Panel, Vitamin D 25-OH Test Result Flag Reference Sodium 141 135-145 mmol/L Potassium 4.3 3.3-5.1 mmol/L CL 105 96-108 mmol/L CO2 30 H 22-29 mmol/L Gap 10 L 12-20 BUN 13 9-16 mg/dL Creat 0.79 0.5-1.4 mg/dL eGFR > 60 Chronic Kidney Disease: Estimated GFR < 60 mL/min/1.73m2 Severe Kidney Disease: Estimated GFR < 15 mL/min/1.73m2 FBS 99 60-99 mg/dL CA 9.8 8.4-10.2 mg/dL AST (GOT) 27 5-31 U/L ALT (GPT) 34 H 0-31 U/L Triglyceride 134 <150 mg/dL Desirable Triglyceride: less than 150 mg/dL Borderline High Triglyceride 150-199 mg/dL High Triglyceride: 200-499 mg/dL Very High Triglyceride: greater than or equal to 5OO mg/dL Cholesterol 246 H <200 mg/dL Desirable Cholesterol: less than 200 mg/dL Borderline High Cholesterol: 200-239 mg/dL High Cholesterol: greater than 239 mg/dL LDL Calculated 155 H <100 mg/dL Desirable LDL: less than 100 mg/dL Near Optimal/Above Optimal LDL: 110-129 mg/dL Borderline High LDL: 130-159 mg/dL High LDL: 160-189 mg/dL Very High LDL: greater than or equal to 190 mg/dL HDL 65 >40 mg/dL Desirable HDL: greater than 40 mg/dL Note: This HDL assay may give artificially low results in patients with liver disease. Vit D 25-OH Tot 35.2 >30 ng/mL Health Based Reference Values* < 20 ng/mL Deficient 20-30 ng/mL Insufficient > 30 ng/mL Sufficient Coding Level of Care Code Tele Est Pt Level 4 (67343) Complex EM visit Add On G2211 Diagnoses Dyslipidemia E78.5 Essential hypertension I10 Additional Codes MER-7 Assessment Billing - MER-7 Assessment Tool: MER-7 Assessment 04558 ([id number]) PHQ-9 - 87852 - PHQ-9 Billing: Yes ([id number]) Assessment & Plan Assessment & Plan (1) Dyslipidemia: Code(s): E78.5 - Hyperlipidemia, unspecified Category: Medical Plan: Continue on pravastatin 80 mg at bedtime, reinforced importance of following recommended diet and getting regular exercise. Will repeat another fasting lipid panel in 4 months (2) Essential hypertension: Code(s): I10 - Essential (primary) hypertension Category: Medical Plan: Continue with lisinopril 20 mg daily, repeat basic metabolic panel liver enzymes in 4 months Orders: Orders Lipid Panel 07/11/24 E78.5 - Hyperlipidemia, unspecified, I10 - Essential (primary) hypertension, R73.01 - Impaired fasting glucose Basic Metabolic Panel Fasting 07/11/24 E78.5 - Hyperlipidemia, unspecified, I10 - Essential (primary) hypertension, R73.01 - Impaired fasting glucose Vitamin D 25-OH Total 07/11/24 Z78.0 - Asymptomatic menopausal state, Z86.39 - Personal history of other endocrine, nutritional and metabolic disease Aspartate Amino Transferase 07/11/24 E78.5 - Hyperlipidemia, unspecified, I10 - Essential (primary) hypertension, R73.01 - Impaired fasting glucose Alanine Aminotransferase 07/11/24 E78.5 - Hyperlipidemia, unspecified, I10 - Essential (primary) hypertension, R73.01 - Impaired fasting glucose Medications: Refilled pravastatin 80 mg PO BEDTIME 90 tabs 2RF
== END 2024-03-29 14:09 | disposition home or self-care (01) ==
LOC: HO.HMCC 13:10
PROVIDERS: PCP Internal Medicine; Visit Provider Internal Medicine
DX: E78.5 Hyperlipidemia, unspecified (principal); I10 Essential (primary) hypertension

== ENCOUNTER → 2024-03-29 13:10 | Outpatient (BNVA) | payer MEDICARE, SELFPAY | PROVIDERS: PCP Internal Medicine; Visit Provider Internal Medicine | DX: E78.5 Hyperlipidemia, unspecified (principal); I10 Essential (primary) hypertension | CPT/HCPCS: 96127 ==

== ENCOUNTER 2024-05-02 10:47 | Outpatient (AMB) | payer MEDICARE, SELFPAY ==
--- NOTE | 2024-05-02 10:50 | AM.OFFVISMDC ---
Intake Vital Signs 05/02/24 10:57 Height 5 ft 7 in Weight 217 lb BMI 34.0 BP 135/80 Blood Pressure Location Rt brachial Position Sitting Respiration 17 Pulse 79 Pulse Source Pulse Oximeter Temp 98.1 F Temp Source Oral Pulse Oximetry (%) 97 Oxygen Delivery Method Room Air Intake Visit Reasons: SWV G0439 Intake Note: Pt is here today for his SWV: Last mammogram 09/29/22, bone density scan 09/29/22, colonoscopy 06/01/21 Allergies atorvastatin Adverse Reaction (Unknown, Verified 05/02/24 11:15) myalgia Medication List - Last Reconciled 05/02/24 by Flakita Beebe MD albuterol sulfate 90 mcg/actuation (ProAir HFA) 1 inh inhalation Q4H PRN albuterol sulfate 2.5 mg (3 mL) inhalation Q4-6H PRN cetirizine 10 mg PO BEDTIME fluticasone propionate 50 mcg/actuation 1 spray intranasal QAM 90 days lisinopril 20 mg PO DAILY lorazepam 1 mg PO DAILY PRN magnesium oxide 250 mg PO DAILY pravastatin 80 mg PO BEDTIME HPI SWV G0439 HPI Details SWV ?68 year year old lady , presents for her Subsequent ? Annual Wellness Visit. She has generalized anxiety disorder, hypertension, impaired fasting glucose, dyslipidemia, with history of patent foramen ovale,?and history of vitamin-D deficiency . She had recent fasting fasting labs done 03/28/2024, which showed higher total cholesterol LDL cholesterol at 155 mg/dL, with normal triglycerides, and HDL cholesterol and fasting blood sugar within normal limits at 99 mg/dL . Patient states that she has been compliant with taking her medications but admits to not being compliant with diet during the recent holiday season. Up-to-date with her screening colonoscopy done 06/01/[address] Aparicio, with removal of a tubular adenoma, to be repeated again in 5 years. She is due for her screening mammogram, ordered today, and is going to be due for repeat bone density scan in 09/29/2024. Patient states she no longer Pap smears since stopped going to her OBGYN. She is up-to-date with her COVID vaccine, flu shot pneumonia vaccines Shingrix vaccine , and RSV vaccination ? Medical / Social History Reviewed? Past Medical History ?Yes . ? [place] of Care / Care Team list updated ?Yes . ? Surgical/Hospitalization History ?Yes . ? Current Medications (including OTC and supplements) ?Yes . ? Family History ?Yes . ? Tobacco Control form ?Yes . ? AUDIT-C (Alcohol use) form ?Yes . ? Illicit drug use in Social History ?Yes . ? Current diagnosis of depression? ?No ? Appropriate PHQ2/PHQ9 completed ?Yes . ? Data entered by ?Etl [employer] and reviewed by provider ? Fall Risk ? Fall History? Have you had any falls with injury in the past year? ?No . ? Have you had two or more falls in the past year? ?No . ? Fall Risk Assessment: ?No falls in the past year . ? HRA filled out by the patient, reviewed by Provider and scanned. ?? SWV ? Balance? Romberg ?negative ? Tandem walk ?Yes . ? Walk and Turn ?Yes . ? Rise from sit to stand ?Yes . ?Vision? Corrective lens , yes ? Vision screen ?overdue, previously seen [facility] ?Hearing? Whisper test ?pass . ?Written Plan?Completed. See Patient Documents.? [facility] Medical History (Updated 05/02/24 @ 11:47 by Flakita Beebe MD) History of adenomatous polyp of colon Osteopenia of left femoral neck History of vitamin D deficiency Left knee pain Leg cramp Left shoulder pain Generalized anxiety disorder Abnormal colonoscopy Essential hypertension Patent foramen ovale with right to left shunt Impaired fasting glucose Vitamin D deficiency Dyslipidemia Surgical History Hx of colonoscopy Colloid cyst of brain Family History Father HTN (hypertension) Hyperlipidemia CAD (coronary artery disease) Alzheimer's disease CVD (cardiovascular disease) Mother Hyperlipidemia Son Bronchial asthma Mental health disorder Paternal Grandmother Alzheimer's disease Paternal Aunt Alzheimer's disease Paternal Uncle No problems noted. Brother No problems noted. Brother No problems noted. Brother No problems noted. Sister No problems noted. Son Bronchial asthma Daughter No problems noted. Social History Household Members Other:: - 3 children Housing: House Alcohol intake: current Alcohol intake frequency: holidays/special occasions only Patient Tobacco Use Status: Never used Tobacco e-Cigarette/Vaping Use: Never Used service: No Current occupational status: retired Cognitive needs: No Hearing needs: No Vision needs: Yes Questionnaire Medicare Wellness Checkup What [age]?: 65-70 What gender do you identify with?: female During the past 4 weeks, how much have you been bothered by emotional problems such as feeling anxious, depressed, irritable, sad or downhearted, and blue?: moderately During the past 4 weeks, has your physical & emotional health limited your social activities with family, friends, neighbors, or groups?: not at all During the past 4 weeks, how much bodily pain have you generally had?: mild pain During the past 4 weeks, was someone available to help you if you needed & wanted help?: no, not at all During the past 4 weeks, what was the hardest physical activity you could do for at least 2 minutes?: moderate Can you get to places out of walking distance without help? (For eg., can you travel alone on buses, taxis or drive your car?): Yes Can you go shopping for groceries or clothes without someone's help?: Yes Can you prepare your own meals?: Yes Can you do your housework without help?: Yes Because of any health problems, do you need the help of another person with your personal care needs such as eating, bathing, dressing or getting around the house?: No Can you handle your own money without help?: Yes During the past 4 weeks, how would you rate your health in general?: good During the past 4 weeks how have things been going for you?: good & bad parts about equal Are you having difficulties driving your car?: no Do you always fasten your seat belt when you are in a car?: yes, usually During past 4 weeks, have you been bothered by the following: never: Falling or dizzy when standing up, Sexual problems?, Trouble eating well? and Problems using the telephone? and sometimes: Teeth or denture problems? and Tiredness or fatigue? Have you fallen 2 or more times in the past year?: Yes Are you afraid of falling?: No Are you a smoker?: no During the past 4 weeks, how many drinks of wine, beer, or other alcoholic beverages did you have?: 2-5 drinks per week Do you exercise for about 20 minutes 3 or more times a week?: yes, most of the time Have you been given information to help with the following?: yes: Keeping track of your medications? and no: Hazards in your house that might hurt you? How often do you have trouble taking medicines the way you have been told to take them?: I always take medicine as prescribed How confident are you that you can control & manage most of your health problems?: very confident What is your race?: White Mini Mental State Exam (MMSE) Orientation What is the (year) (season) (date) (day) (month)?: year (2024), season (Winter), date (05/02/2024), day () and month (April) Where are we (state) (county) (town or city) (hospital) (floor)?: state ([place]), county ([place]), town or city ([place]) and hospital/clinic ([facility]) Score Score: 9 Activity of Daily Living Bathing - sponge bath, tub bath or shower: receives no assistance (gets in/out by self, if usual bathing means Dressing - getting clothes from closets & drawers, including inner/outer garments & fasteners.: gets clothes & gets completely dressed without help Toileting - going to the 'toilet room' for urine/bowel elimination & cleaning self/arranging clothes: goes to toilet room, cleans self, arranges clothes without help Transfer: moves in & out of bed and chair without help (may use support object) Continence: controls urination/bowel movements completely by self Feeding: feeds self without help Total Score: 0 Information obtained from: patient Using telephone: independent Traveling: independent Shopping: independent Preparing meals: independent Housework: independent Taking medicine: independent Managing money: independent PHQ-9 Over the last 2 weeks, how often have you been bothered by any of the following problems? 1. Little interest or pleasure in doing things: not at all 2. Feeling down, depressed, or hopeless: not at all 3. Trouble falling or staying asleep, or sleeping too much: more than half the days 4. Feeling tired or having little energy: not at all 5. Poor appetite or overeating: not at all 6. Feeling bad about yourself - or that you are a failure or have let yourself or your family down: not at all 7. Trouble concentrating on things, such as reading the newspaper or watching television: not at all 8. Moving or speaking so slowly that other people could have noticed. Or the opposite - being so fidgety or restless that you have been moving around a lot more than usual: not at all 9. Thoughts that you would be better off or of hurting yourself in some way: not at all Total score: 2 Depression Screening Interpretation: Negative Depression Screening Done: Yes 33504 - PHQ-9 Billing: Yes Source: Developed by Drs. Brett Jarrett, Dariana Lowe, Torin Ma and colleagues, with an educational marcela from [employer]. Physical Exam Vital Signs: Last Vital Signs Temp 98.1 F 05/02/24 10:57 Pulse 79 05/02/24 10:57 Resp 17 05/02/24 10:57 BP 140/80 H 05/02/24 10:57 Pulse Ox 97 05/02/24 10:57 Oxygen Delivery Method Room Air 05/02/24 10:57 BMI result Body Mass Index 34.0 Results Reviewed Results Reviewed: antonia: Lee Ann Diaz Age/Sex: 68/F : 1955 Unit#: [id number] Attend Dr: Flakita Beebe MD Re03/28/24 Status: DEP REF Location: [facility] Disch: SPEC : [id number] DARRELL: 03/28/24 STATUS: COMP REQ : [id number] RECD: 03/28/24-[address]: Flakita Beebe MD COMP: 03/28/24 ENTERED: 03/28/24-[address]: ORDERED: Met Prof Fast, AST, ALT, Lipid Panel, Vitamin D 25-OH Test Result Flag Reference Sodium 141 135-145 mmol/L Potassium 4.3 3.3-5.1 mmol/L CL 105 96-108 mmol/L CO2 30 H 22-29 mmol/L Gap 10 L 12-20 BUN 13 9-16 mg/dL Creat 0.79 0.5-1.4 mg/dL eGFR > 60 Chronic Kidney Disease: Estimated GFR < 60 mL/min/1.73m2 Severe Kidney Disease: Estimated GFR < 15 mL/min/1.73m2 FBS 99 60-99 mg/dL CA 9.8 8.4-10.2 mg/dL AST (GOT) 27 5-31 U/L ALT (GPT) 34 H 0-31 U/L Triglyceride 134 <150 mg/dL Desirable Triglyceride: less than 150 mg/dL Borderline High Triglyceride 150-199 mg/dL High Triglyceride: 200-499 mg/dL Very High Triglyceride: greater than or equal to 5OO mg/dL Cholesterol 246 H <200 mg/dL Desirable Cholesterol: less than 200 mg/dL Borderline High Cholesterol: 200-239 mg/dL High Cholesterol: greater than 239 mg/dL LDL Calculated 155 H <100 mg/dL Desirable LDL: less than 100 mg/dL Near Optimal/Above Optimal LDL: 110-129 mg/dL Borderline High LDL: 130-159 mg/dL High LDL: 160-189 mg/dL Very High LDL: greater than or equal to 190 mg/dL HDL 65 >40 mg/dL Desirable HDL: greater than 40 mg/dL Note: This HDL assay may give artificially low results in patients with liver disease. Vit D 25-OH Tot 35.2 >30 ng/mL Health Based Reference Values* < 20 ng/mL Deficient 20-30 ng/mL Insufficient > 30 ng/mL Sufficient Assessment & Plan Assessment & Plan (1) Encounter for subsequent annual wellness visit (AWV) in Medicare patient: Code(s): Z00.00 - Encounter for general adult medical examination without abnormal findings Plan: Medical wellness checklist reviewed, discussed with patient and updated. She is up-to-date with all her vaccinations ordered bone density and mammogram to be done in 11/30/2024 per patient request due for a colonoscopy screening again in 2026 (2) Osteopenia of left femoral neck: Code(s): M85.852 - Other specified disorders of bone density and structure, left thigh Plan: Stressed importance of doing regular weight-bearing exercise, take adequate calcium from dietary sources and vitamin-D 3 at least 2000 units daily. Will repeat another bone density scan later this year together with her screening mammogram, patient request to have it done in November (3) Generalized anxiety disorder: Code(s): F41.1 - Generalized anxiety disorder Plan: Takes lorazepam as needed for acute anxiety attack (4) Dyslipidemia: Code(s): E78.5 - Hyperlipidemia, unspecified Plan: Reviewed recent fasting lipids today with patient which showed elevated cholesterol and LDL cholesterol. Patient attributed to her not being compliant with diet over the holiday season. The statin 80 mg daily together with Co Q10 supplements reinforced importance of taking medicines as directed and adhering to healthy eating habits and regular exercise. Will repeat another fasting lipid level in 07/2024 (5) Essential hypertension: Code(s): I10 - Essential (primary) hypertension Plan: Blood pressure at goal of less than 130/80. Continue with lisinopril 20 mg daily. Reinforced importance of following a low sodium diet, getting regular exercise, and lowering stress levels. Orders: Orders MM tomosynthesis screening BI Today M85.852 - Other specified disorders of bone density and structure, left thigh, Z12.31 - Encounter for screening mammogram for malignant neoplasm of breast XR DEXA axial skeleton Today M85.852 - Other specified disorders of bone density and structure, left thigh, Z12.31 - Encounter for screening mammogram for malignant neoplasm of breast Quality Reporting (2020) Depression/Bipolar (159/160/161/177) PHQ-9: Total score: 2 Coding Level of Care Code Medicare Subsequent (G0439) Diagnoses Encounter for subsequent annual wellness visit (AWV) in Medicare patient Z00.00 Osteopenia of left femoral neck M85.852 Generalized anxiety disorder F41.1 Dyslipidemia E78.5 Essential hypertension I10 Additional Codes PHQ-9 - 11000 - PHQ-9 Billing: Yes ([id number])
[2024-05-02 10:57] VITALS: BP 135/80; PULSE 79; RESP 17; TEMP 36.7; O2SAT 97; BMI 34.0
--- OUTSIDE RECORDS SUMMARY | 2024-05-02 11:56 | XMS_ITS | Clinical Summary ---
Author Organization [facility] it Address [address] [place] [address] Care Team Providers Care Wood Floor Refinisher Name Role Phone Unavailable Primary Care Provider Unavailabl e Social History Tobacco Use Types Packs/Day Years Used Date Smoking Tobacco: Never Assessed Comments Unknown Sex and Gender Information Value Date Recorded Sex Assigned at Not on file Legal Sex Female 9:06 PM EST Gender Identity Not on file Sexual Orientation Not on file Plan of Treatment Health Maintenance Due Date Last Done Comments Breast Cancer Screening 1955 DTaP,Tdap,and Td Vaccines (1 - Tdap) 11/02/1975 Pneumococcal Vaccine: 50+ Ye ars (1 of 1 - PCV) 2006 Zoster Vaccines (1 of 2) 2006 Colorectal Cancer Screening: Colonoscopy 04/07/2023 Depression Screening 04/07/2023 Falls Risk Assessment 04/07/2023 Hepatitis C Screening 04/07/2023 Osteoporosis Screening (Bone Density Screening) 04/07/2023 Social Influencers of Health Screening 04/07/2023 COVID-19 Vaccine (1 - 2023-2 5 season) 2023 Influenza Vaccine (#1) 2023 RSV Immunization Patients 60 + Years Old (1 - 1-dose 75+ series) 11/02/2031 HIB Vaccines Aged Out No longer eligi ble based on patient's age to complete this topic HPV Vaccines Aged Out No longer eligi ble based on patient's age to complete this topic Hepatitis A Vaccines Aged Out No long er eligible based on patient's age to complete this topic Hepatitis B Vaccines Aged Out No long er eligible based on patient's age to complete this topic IPV Vaccines Aged Out No longer eligi ble based on patient's age to complete this topic MMR Vaccines Aged Out No longer eligi ble based on patient's age to complete this topic Meningococcal ACWY Vaccine Aged Out N o longer eligible based on patient's age to complete this topic Meningococcal B Vacine Aged Out No lo nger eligible based on patient's age to complete this topic RSV Immunization Patients Un gale 20 months Aged Out No longer eligible b ased on patient's age to complete this topic Varicella Vaccines Aged Out No longer eligible based on patient's age to complete this topic
== END 2024-05-02 14:16 | disposition home or self-care (01) ==
PROVIDERS: PCP Internal Medicine; Visit Provider Internal Medicine
DX: Z00.00 Encounter for general adult medical examination without abnormal findings (principal); M85.852 Other specified disorders of bone density and structure, left thigh; F41.1 Generalized anxiety disorder; E78.5 Hyperlipidemia, unspecified; I10 Essential (primary) hypertension

== ENCOUNTER → 2024-05-02 10:47 | Outpatient (BNVA) | payer MEDICARE, SELFPAY | PROVIDERS: PCP Internal Medicine; Visit Provider Internal Medicine | DX: Z00.00 Encounter for general adult medical examination without abnormal findings (principal); M85.852 Other specified disorders of bone density and structure, left thigh; F41.1 Generalized anxiety disorder; E78.5 Hyperlipidemia, unspecified; I10 Essential (primary) hypertension | CPT/HCPCS: 96127 ==

== ENCOUNTER 2025-01-22 12:38 | Outpatient (REF) | payer MEDICARE, SELFPAY ==
--- NOTE | ~2025-01-22 | MM_ITS ---
EXAMINATION: DXA BONE DENSITY AXIAL HISTORY: Z12.31 - Encounter for screening mammogram for malignant neoplasm of breast TECHNIQUE: [employer] Dual energy absorptiometry (DEXA) of the lumbar spine, total left hip, and femoral neck was performed. COMPARISON: Comparison is made with the prior examination dated September 2022. FINDINGS: The bone mineral density of the lumbar spine is 1.461 g/cm2, corresponding to a T-score of 2.3, and a Z-score of 3. This is indicative of normal bone mineral density. This represents a BMD change of 1.5% compared to the prior exam. The bone mineral density of the left total hip is 1.055 g/cm2, corresponding to a T-score of 0.4, and a Z-score of 1.0. This is indicative of normal bone mineral density. This represents a BMD change of -2.3% compared to the prior exam. This is not statistically significant. The bone mineral density of the left femoral neck is 0.912 g/cm2, corresponding to a T-score of -0.9, and a Z-score of 0.1. This is indicative of normal bone mineral density. This represents a BMD change of 2.6% compared to the prior exam. MM/XR DEXA axial skeleton IMPRESSION: Based on bone mineral density, and according to World Health Organization (WHO) criteria, the diagnosis is consistent with normal bone mineral density. Statistically, 68% of repeat scans fall within 1 SD (+/- 0.010 g/cm2 for AP spine L1-L4) and 1 SD (+/- 0.012 g/cm2 for femur total) FRAX is a trademark of the [employer]'s [employer] Metabolic Bone Disease, a World Health Organization (WHO) Collaborating Center. Electronically signed by: Bethanie Elliott MD 01/22/2025 02:28 PM [facility]
--- OUTSIDE RECORDS SUMMARY | 2025-01-22 15:18 | XMS_ITS | Clinical Summary ---
Author Organization [facility] it Address [address] [place] [address] Care Team Providers Care Pot Feeder Name Role Phone Unavailable Primary Care Provider [...] Last Done Comments Breast Cancer Screening 1955 Colorectal Cancer Screening: Colonoscopy 1955 DTaP,Tdap,and Td Vaccines (1 - Tdap) 11/02/1975 Pneumococcal Vaccine: 50+ Ye ars (1 of 1 - PCV) 2006 Zoster Vaccines (1 of 2) 2006 Falls Risk Assessment 04/07/2023 Hepatitis C Screening 04/07/2023 Osteoporosis Screening (Bone Density Screening) 04/07/2023 Social Influencers of Health Screening 04/07/2023 Depression Screening 03/13/2024 COVID-19 Vaccine (1 - 2024-2 6 season) 2024 Influenza Vaccine (#1) 2024 RSV Immunization Adult Patie nts (1 - 1-dose 75+ series) 11/02/2031 HIB [...] age to complete this topic Meningococcal B Vaccine Aged Out No l onger eligible based on patient's age to complete this topic RSV Immunization Patients Un gale 20 months Aged Out No longer eligible b ased on patient's age to complete this topic Varicella Vaccines Aged Out No longer eligible based on patient's age to complete this topic
== END 2025-01-22 12:39 | disposition home or self-care (01) ==
LOC: HO.MAMMO 12:38
PROVIDERS: PCP Internal Medicine; Visit Provider Internal Medicine
DX: Z12.31 Encounter for screening mammogram for malignant neoplasm of breast (principal); Z13.820 Encounter for screening for osteoporosis; M85.852 Other specified disorders of bone density and structure, left thigh
CPT/HCPCS: 77063; 77067; 77080

== ENCOUNTER → 2025-01-22 13:00 | Outpatient (BNV) | payer MEDICARE, SELFPAY | PROVIDERS: PCP Internal Medicine; Visit Provider Radiology Diagnostic Radiology | DX: E28.39 Other primary ovarian failure (principal) | CPT/HCPCS: 77080 ==

== ENCOUNTER 2025-02-10 07:46 | Outpatient (REF) | payer MEDICARE, SELFPAY ==
--- OUTSIDE RECORDS SUMMARY | 2025-02-10 07:49 | XMS_ITS | Clinical Summary ---
Author Organization [facility] it Address [address] [place] [address] Care Team Providers Care Mold Dumper Name Role Phone Unavailable Primary Care Provider [...]
[2025-02-10 11:47] LABS: Alanine Aminotransferase 38 U/L (0-31); Anion Gap 11 (12-20); Aspartate Amino Transferase 39 U/L (5-31); Blood Urea Nitrogen 16 mg/dL (9-16); Calcium 9.3 mg/dL (8.4-10.2); Carbon Dioxide 28 mmol/L (22-29); Chloride 108 mmol/L (96-108); Cholesterol 228 mg/dL (<200); Estimated Glomerular Filt Rate 55; HDL Cholesterol 74 mg/dL (>40); Potassium 4.0 mmol/L (3.3-5.1); Sodium 143 mmol/L (135-145); Triglycerides 91 mg/dL (<150)
== END 2025-02-10 07:47 | disposition home or self-care (01) ==
LOC: HO.HMGCLDS 07:46
PROVIDERS: PCP Internal Medicine; Visit Provider Internal Medicine
DX: I10 Essential (primary) hypertension (principal); R73.01 Impaired fasting glucose; E78.5 Hyperlipidemia, unspecified; Z78.0 Asymptomatic menopausal state; Z86.39 Personal history of other endocrine, nutritional and metabolic disease
CPT/HCPCS: 36415; 80048; 80061; 82306; 84450; 84460

== ENCOUNTER 2025-02-11 11:49 | Outpatient (AMB) | payer MEDICARE, SELFPAY ==
--- NOTE | 2025-02-11 12:01 | MHC.PC.OV ---
Vital Signs 02/11/25 12:02 Height 5 ft 7 in Weight 212 lb BMI 33.2 BP 120/85 Blood Pressure Location Rt brachial Position Sitting Respiration 16 Pulse 56 Pulse Source Pulse Oximeter Temp 98.5 F Temp Source Oral Pulse Oximetry (%) 95 Oxygen Delivery Method Room Air Intake Visit Reasons: 7M F/U RE Workforce Manager Required: No Allergies atorvastatin Adverse Reaction (Unknown, Verified 02/11/25 12:10) myalgia Medication List - Last Reconciled 02/11/25 by Flakita Beebe MD albuterol sulfate 90 mcg/actuation (ProAir HFA) 1 inh inhalation Q4H PRN albuterol sulfate 2.5 mg (3 mL) inhalation Q4-6H PRN cetirizine 10 mg PO BEDTIME fluticasone propionate 50 mcg/actuation 1 spray intranasal QAM 90 days lisinopril 20 mg PO DAILY lorazepam 1 mg PO DAILY PRN magnesium oxide 250 mg PO DAILY pravastatin 80 mg PO BEDTIME Tobacco use date assessed: 02/11/25 Fall risk assessment: No Falls in past year Last assessed Fall Risk: 02/11/25 Dental Screening Dental Screen Date: 02/11/25 Did you have a dental visit in the last 12 months?: No Did you have a dental problem in the last 6 months where you did not have access to dental care?: No Was dental information given to patient?: Patient declined HPI 7M F/U RE HPI Details The patient is a 69 year old individual presenting for a follow-up visit. She he is currently on lisinopril for hypertension, with good blood pressure control noted. Recent lab work showed an increase in blood sugar and liver enzymes, which the patient associates with wine consumption. On a positive note, triglycerides decreased from 134 to 91, total cholesterol decreased by 20 points, LDL cholesterol decreased from 155 to 136, and HDL cholesterol increased. The patient takes pravastatin with CoQ10 and denies any muscle pain. The patient reports joint stiffness consistent with osteoarthritis, which is particularly noticeable when getting up from a seated position. The patient uses Motrin for relief but was cautioned about its effect on kidney function. A history of palpitations with Tylenol was reported. The patient also takes turmeric, vitamin B100, and a fish oil supplement for joint health, though inconsistently. Knee x-rays from the previous year showed mild to moderate osteoarthritis in the medial compartments of both the right and left knees, with no change from prior studies. A cortisone shot received a year ago provided no relief. Latest bone density scan from January 22 showed normal bone density, and a mammogram was also normal. Vitamin D level was noted to be good. The patient is up-to-date on pneumonia, RSV, and the shingles vaccine series but has not yet received this year's flu shot [facility] Medical History (Updated 02/11/25 @ 12:40 by Flakita Beebe MD) History of adenomatous polyp of colon History of vitamin D deficiency Leg cramp Generalized anxiety disorder Abnormal colonoscopy Essential hypertension Patent foramen ovale with right to left shunt Impaired fasting glucose Dyslipidemia Surgical History Hx of colonoscopy Colloid cyst of brain Family History Father HTN (hypertension) Hyperlipidemia CAD (coronary artery disease) Alzheimer's disease CVD (cardiovascular disease) Mother Hyperlipidemia Son Bronchial asthma Mental health disorder Paternal Grandmother Alzheimer's disease Paternal Aunt Alzheimer's disease Paternal Uncle No problems noted. Brother No problems noted. Brother No problems noted. Brother No problems noted. Sister No problems noted. Son Bronchial asthma Daughter No problems noted. Social History Household Members Other:: - 3 children Housing: House Alcohol intake: current Alcohol intake frequency: holidays/special occasions only Patient Tobacco Use Status: Never used Tobacco e-Cigarette/Vaping Use: Never Used service: No Current occupational status: retired Cognitive needs: No Hearing needs: No Vision needs: Yes Questionnaire PHQ-9 Over the last 2 weeks, how often have you been bothered by any of the following problems? 1. Little interest or pleasure in doing things: not at all 2. Feeling down, depressed, or hopeless: not at all 3. Trouble falling or staying asleep, or sleeping too much: more than half the days 4. Feeling tired or having little energy: not at all 5. Poor appetite or overeating: not at all 6. Feeling bad about yourself - or that you are a failure or have let yourself or your family down: not at all 7. Trouble concentrating on things, such as reading the newspaper or watching television: not at all 8. Moving or speaking so slowly that other people could have noticed. Or the opposite - being so fidgety or restless that you have been moving around a lot more than usual: not at all 9. Thoughts that you would be better off or of hurting yourself in some way: not at all Total score: 2 Source: Developed by Drs. Brett Jarrett, Dariana Lowe, Torin Ma and colleagues, with an educational marcela from [employer]. Thrive Questionnaire Date Thrive assessed: 03/29/24 I am a: Patient What is your living situation today?: I have a steady place to live Within the past 12 months, did the food you bought not last and you didn't have the money to get more?: Never true Within the past 12 months, did you worry whether your food would run out before you got money to buy more?: Never true Do you have trouble paying for medicines?: No Do you have trouble getting transportation to medical appointments?: No Do you have trouble paying your heating and electricity bill?: No Do you have trouble taking care of your child, family member or friend?: No Do you have trouble with day-to-day activities such as bathing, preparing meals, shopping, managing finances, etc.?: No Are you currently unemployed and looking for a job?: No Are you interested in more education?: No THRIVE Score: 0 AUDIT C Alcohol Use Questionnaire (AUDIT-C) 1. How often do you have a drink containing alcohol?: Never Total Score: 0 MER-7 AMB Questionnaire MER-7 Date MER - 7 assessed: 03/29/24 Feeling nervous, anxious, or on edge: 0 = Not at all Not being able to stop or control worryin = Not at all Worrying too much about different things: 0 = Not at all Trouble relaxin = Not at all Being so restless that it is hard to sit still: 0 = Not at all Becoming easily annoyed or irritable: 0 = Not at all Feeling afraid as if something awful might happen: 0 = Not at all Total MER-7 score (0-4 normal; 5-9 mild; 10-14 moderate; 15-21 severe): 0 Source: Developed by Drs. Brett Jarrett, Dariana Lowe, Torin Ma and colleagues, with an educational marcela from [employer]. Review of Systems Const Denies fever(s) and Denies headache(s) ENT Denies dizziness, Denies headache(s) and Denies sore throat Card Denies chest pain, Denies lightheadedness and Denies dyspnea Resp Denies chest congestion, Denies cough and Denies dyspnea GI Denies abdominal pain, Denies change in bowel habits and Denies heartburn Reports no additional complaints Musc Denies muscle cramps (When taking a statin) and Reports stiffness Neuro Denies dizziness and Denies headache(s) Psych Reports no additional complaints Endo Reports no additional complaints Jeison/Lymph Reports no additional complaints Aller/Immun Reports seasonal rhinorrhea Physical exam (Primary Care) Vital Signs: Last Vital Signs Temp 98.5 F 02/11/25 12:02 Pulse 56 02/11/25 12:02 Resp 16 02/11/25 12:02 BP 120/85 02/11/25 12:02 Pulse Ox 95 02/11/25 12:02 Oxygen Delivery Method Room Air 02/11/25 12:02 BMI result Body Mass Index 33.2 Tobacco/Smoking Status: Tobacco use Status Tobacco use date assessed 02/11/25 02/11/25 12:06 Patient Tobacco Use Status Never used Tobacco 02/11/25 12:06 e-Cigarette/Vaping Use Never Used 02/11/25 12:06 PHQ-9: PHQ-9 Score PHQ-9: Total score 2 02/11/25 12:12 Thrive Assessment: Date of Thrive Assessment Date Thrive assessed 03/29/24 02/11/25 12:06 Const Other: Alert oriented x3, no acute distress noted , normal gait Neck Neck: Yes full ROM, Yes no lymphadenopathy and Yes supple Resp Effort & Inspection: normal respiratory effort and able to speak in complete sentences Auscultation: clear to auscultation bilaterally Cardio Rate: regular rate Rhythm: regular rhythm Heart sounds: S1 normal heart sound present and S2 normal heart sound present GI Palpation (GI): Soft to palpation, nontender, no guarding and no masses Auscultation: normal bowel sounds General: Yes no CVA tenderness Back/Spine/Pelvis Back: no CVA tenderness and No back tenderness Skin General skin exam: no rashes or lesions noted Neuro General: gait normal, tone normal, Normal light touch and pain sensation, no focal motor deficits and CN's II-XI intact bilaterally Extrem General: Yes full ROM, Yes no joint enlargement, Yes no clubbing, cyanosis or edema, Yes no calf tenderness and Yes normal gait Psych Appearance: grossly normal and well kempt Mental Status: mental status grossly normal Speech and movement: Normal speech and movement present Affect: normal affect Results Reviewed Results Reviewed: antonia: Lee Ann Diaz Age/Sex: 69/F : 1955 Unit#: [id number] Attend Dr: Flakita Beebe MD Re02/10/25 Status: DEP REF Location: [facility] Disch: SPEC : [id number] DARRELL: 02/10/25 STATUS: COMP REQ : [id number] RECD: 02/10/[address]: Flakita Beebe MD COMP: 02/10/25 ENTERED: 02/10/[address]: ORDERED: Met Prof Fast, AST, ALT, Lipid Panel, Vitamin D 25-OH Test Result Flag Reference Sodium 143 135-145 mmol/L Potassium 4.0 3.3-5.1 mmol/L CL 108 96-108 mmol/L CO2 28 22-29 mmol/L Gap 11 L 12-20 BUN 16 9-16 mg/dL Creat 1.00 0.5-1.4 mg/dL eGFR 55 Chronic Kidney Disease: Estimated GFR < 60 mL/min/1.73m2 Severe Kidney Disease: Estimated GFR < 15 mL/min/1.73m2 FBS 114 H 60-99 mg/dL A fasting glucose from 100-125 mg/dl is considered impaired (pre-diabetes). CA 9.3 8.4-10.2 mg/dL AST (GOT) 39 H 5-31 U/L ALT (GPT) 38 H 0-31 U/L Triglyceride 91 <150 mg/dL Desirable Triglyceride: less than 150 mg/dL Borderline High Triglyceride 150-199 mg/dL High Triglyceride: 200-499 mg/dL Very High Triglyceride: greater than or equal to 5OO mg/dL Cholesterol 228 H <200 mg/dL Desirable Cholesterol: less than 200 mg/dL Borderline High Cholesterol: 200-239 mg/dL High Cholesterol: greater than 239 mg/dL LDL Calculated 136 H <100 mg/dL Desirable LDL: less than 100 mg/dL Near Optimal/Above Optimal LDL: 110-129 mg/dL Borderline High LDL: 130-159 mg/dL High LDL: 160-189 mg/dL Very High LDL: greater than or equal to 190 mg/dL HDL 74 >40 mg/dL Desirable HDL: greater than 40 mg/dL Note: This HDL assay may give artificially low results in patients with liver disease. Vitamin D 25-OH 49.3 >30 ng/mL Health Based Reference Values* < 20 ng/mL Deficient 20-30 ng/mL Insufficient > 30 ng/mL Sufficient Coding Level of Care Code Est Pt Level 4 (69709) Diagnoses Generalized anxiety disorder F41.1 Essential hypertension I10 Dyslipidemia E78.5 Impaired fasting glucose R73.01 Osteoarthritis of left knee M17.12 Assessment & Plan Assessment & Plan (1) Generalized anxiety disorder: Code(s): F41.1 - Generalized anxiety disorder Category: Medical Plan: Takes lorazepam as needed for acute anxiety attacks (2) Essential hypertension: Code(s): I10 - Essential (primary) hypertension Category: Medical Plan: Continue lisinopril 20 mg daily (3) Dyslipidemia: Code(s): E78.5 - Hyperlipidemia, unspecified Category: Medical Plan: Lab results show improvement with decreased total cholesterol, LDL, and triglycerides, and increased HDL. continue pravastatin and recheck cholesterol levels before the next visit. (4) Impaired fasting glucose: Code(s): R73.01 - Impaired fasting glucose Category: Medical Plan: Your previous fasting blood sugars were elevated above 100 mg/dL. Impaired glucose metabolism increases the risk for developing diabetes mellitus type 2, as well as heart attack and stroke later on. Lifestyle changes that promotes weight loss, healthy eating habits, and regular exercise are important, and can prevent the progression to diabetes (5) Osteoarthritis of left knee: Code(s): M17.12 - Unilateral primary osteoarthritis, left knee Category: Medical Plan: The patient presents with joint stiffness consistent with mild to moderate osteoarthritis, confirmed by imaging from the previous year. Symptoms are exacerbated by periods of inactivity. Plan includes advising daily stretching and increased physical activity, cautioning against overuse of Motrin, and suggesting a trial of low-dose Tylenol (325 mg) at night. Weight loss was also discussed as a means to alleviate joint stress Orders: Orders Comprehensive Follett. Panel Fast 04/19/25 E78.5 - Hyperlipidemia, unspecified, F41.1 - Generalized anxiety disorder, I10 - Essential (primary) hypertension, M17.12 - Unilateral primary osteoarthritis, left knee, M85.852 - Other specified disorders of bone density and structure, left thigh, R73.01 - Impaired fasting glucose, Z86.39 - Personal history of other endocrine, nutritional and metabolic disease Hemoglobin A1c 04/19/25 E78.5 - Hyperlipidemia, unspecified, F41.1 - Generalized anxiety disorder, I10 - Essential (primary) hypertension, M17.12 - Unilateral primary osteoarthritis, left knee, M85.852 - Other specified disorders of bone density and structure, left thigh, R73.01 - Impaired fasting glucose, Z86.39 - Personal history of other endocrine, nutritional and metabolic disease Vitamin D 25-OH Total 04/19/25 E78.5 - Hyperlipidemia, unspecified, F41.1 - Generalized anxiety disorder, I10 - Essential (primary) hypertension, M17.12 - Unilateral primary osteoarthritis, left knee, M85.852 - Other specified disorders of bone density and structure, left thigh, R73.01 - Impaired fasting glucose, Z86.39 - Personal history of other endocrine, nutritional and metabolic disease Vitamin B12 and Folate 04/19/25 E78.5 - Hyperlipidemia, unspecified, F41.1 - Generalized anxiety disorder, I10 - Essential (primary) hypertension, M17.12 - Unilateral primary osteoarthritis, left knee, M85.852 - Other specified disorders of bone density and structure, left thigh, R73.01 - Impaired fasting glucose, Z86.39 - Personal history of other endocrine, nutritional and metabolic disease Lipid Panel 04/19/25 E78.5 - Hyperlipidemia, unspecified, F41.1 - Generalized anxiety disorder, I10 - Essential (primary) hypertension, M17.12 - Unilateral primary osteoarthritis, left knee, M85.852 - Other specified disorders of bone density and structure, left thigh, R73.01 - Impaired fasting glucose, Z86.39 - Personal history of other endocrine, nutritional and metabolic disease Creatine Kinase Total 04/19/25 E78.5 - Hyperlipidemia, unspecified, F41.1 - Generalized anxiety disorder, I10 - Essential (primary) hypertension, M17.12 - Unilateral primary osteoarthritis, left knee, M85.852 - Other specified disorders of bone density and structure, left thigh, R73.01 - Impaired fasting glucose, Z86.39 - Personal history of other endocrine, nutritional and metabolic disease Medications: Refilled fluticasone propionate 50 mcg/actuation 1 spray intranasal QAM 48 grams 3RF 90 days
[2025-02-11 12:02] VITALS: BP 120/85; PULSE 56; RESP 16; TEMP 36.9; O2SAT 95; BMI 33.2
--- OUTSIDE RECORDS SUMMARY | 2025-02-11 14:00 | XMS_ITS | Clinical Summary ---
Author Organization [facility] it Address [address] [place] [address] Care Team Providers Care Floral Arranger Name Role Phone Unavailable Primary Care Provider [...]
== END 2025-02-11 12:45 | disposition home or self-care (01) ==
LOC: HO.HMCC 11:50
PROVIDERS: Visit Provider Internal Medicine
DX: F41.1 Generalized anxiety disorder (principal); I10 Essential (primary) hypertension; E78.5 Hyperlipidemia, unspecified; R73.01 Impaired fasting glucose; M17.12 Unilateral primary osteoarthritis, left knee

== ENCOUNTER → 2025-02-11 11:49 | Outpatient (BNVA) | payer MEDICARE, SELFPAY | PROVIDERS: Visit Provider Internal Medicine | DX: F41.1 Generalized anxiety disorder (principal); I10 Essential (primary) hypertension; E78.5 Hyperlipidemia, unspecified; R73.01 Impaired fasting glucose | CPT/HCPCS: 99212 ==